=== PATIENT | female | born 1960 | race Caucasian/White ===

== ENCOUNTER 2020-11-03 14:43 | Emergency (ER) | payer MEDICARE, SELFPAY ==
--- NOTE | ~2020-11-03 | XR_ITS ---
EXAMINATION: XR shoulder RT min 2V DATE: 11/03/2020 15:31 INDICATION: Right shoulder pain post fall 1-2 months prior TECHNIQUE: AP internally and externally rotated, AP oblique externally rotated and transscapular Y vi ews of the right shoulder were obtained. COMPARISON: None FINDINGS: Old healed fracture of the right clavicle occurring lateral to the coracoclavicular ligament. Nonunio n with the fracture being healed with cephalad displacement of the lateral fragment. Alignment is oth erwise normal. Glenohumeral joint space appears relatively preserved. Mild acromioclavicular osteoart hritis. Soft tissues are unremarkable. Visualized portions of the lungs are clear. IMPRESSION: Old malunited fracture of the lateral right clavicle. No acute osseous abnormality. Reviewed, dictated and finalized at location A. IMPRESSION: Old malunited fracture of the lateral right clavicle. No acute osseous abnormal ity.
[2020-11-03 14:52] VITALS: BP 156/90; PULSE 64; RESP 20; TEMP 36.8; O2SAT 99
--- NOTE | 2020-11-03 15:39 | ED.UPPEXIN ---
HPI - Extremity Injury (Upper) General Chief Complaint: Extremity Injury, Upper Stated Complaint: Fell in the month of August right Shoulder in pain Source: patient and RN notes reviewed Mode of arrival: ambulatory Limitations: no limitations History of Present Illness HPI narrative: 60 year old female who presents to express care with complaints of right shoulder pain with radiation of pain to her neck and down her right arm. Patient states that she fell directly onto her right shoulder in August at the [facility] [place] and has pain to shoulder since but 2 weeks ago she noticed pain going to her neck and down her right arm. She stats for the past 2 days she has experienced some tingling and numbness to her right hand. She states that pain to her neck seems to be worse when she turns to the right. MD complaint: injury to: right Onset (ago): month(s) (2) Other injuries: none Handedness: right Context: fall Treatments prior to arrival: other (tylenol) Related Data Home Medications Medication Instructions Recorded Confirmed atorvastatin 20 mg PO DAILY 05/10/19 11/03/20 duloxetine 60 mg PO DAILY 05/10/19 11/03/20 furosemide 20 mg PO DAILY 05/10/19 11/03/20 gabapentin 300 mg PO DAILY 05/10/19 11/03/20 meloxicam 15 mg PO DAILY 05/10/19 11/03/20 metformin 500 mg PO DAILY 05/10/19 11/03/20 omeprazole 20 mg PO DAILY 05/10/19 11/03/20 diclofenac sodium 50 mg PO BID 11/03/20 11/03/20 Allergies Allergy/AdvReac Type Severity Reaction Status Date / Time No Known Allergies Allergy Verified 11/03/20 15:01 Review of Systems Review of Systems: Narrative: CONSTITUTIONAL: Denies fever, chills, or sweats. EYES: Denies visual changes, redness, or discharge. ENT: Denies rhinorrhea, congestion, sore throat, or otalgia. CARDIOVASCULAR: Denies chest pain, palpitations, or edema. RESPIRATORY: Denies cough or dyspnea. GASTROINTESTINAL: Denies abdominal pain, nausea, vomiting, or diarrhea. GENITOURINARY: Denies dysuria or hematuria. SKIN: Denies rash or itching. MUSCULOSKELETAL: Denies back pain,positive for right shoulder joint pain radiating to right neck and down right arm or myalgia. NEUROLOGIC: Denies headache, numbness, or weakness. PSYCHIATRIC:Positive history of anxiety or depression. All systems reviewed & are unremarkable except as noted in HPI and below PMFSH Past Medical History Medical History (Updated 11/07/20 @ 14:04 by Vivian Sanchez NP) Anxiety and depression Arthritis Diabetes Hyperlipidemia Hypertension Neuropathy Otitis media Surgical History Surgical History (Updated 11/07/20 @ 14:08 by Vivian Sanchez NP) H/O elbow surgery bilateral ulnar nerve release History of carpal tunnel release bilateral History of placement of ear tubes History of shoulder surgery Bilateral History of total left knee replacement (TKR) History of total right knee replacement (TKR) Hx of LASIK Social History Social History (Updated 11/07/20 @ 14:08 by Vivian Sanchez NP) Smoking status: Never smoker Alcohol intake: unknown Substance use: never Living arrangements: with family Gender identity (if verbalized by the patient): Female Comments At time of signature, agree with nursing past medical, surgical, social and family history. There is no relevant family history pertinent to the presenting complaint Exam Narrative: Exam Narrative: GENERAL: Well-appearing, well-nourished, and in no acute distress. HEAD: Normocephalic, atraumatic. EYES: PERRLA and EOMI. ENT: Nares clear, no rhinorrhea or epistaxis. Mucous membranes moist. NECK: Supple.no lymphadenopathy full ROM of neck CHEST: Clear to auscultation. No respiratory distress.SAO2 99% on room air HEART: Regular rate and rhythm. No murmur heard. Normal peripheral pulses. ABDOMEN: Soft, nontender, nondistended, normal active bowel sounds. EXTREMITIES: Normal range of motion. No edema.Patient with reported pain to right shoulder with radiation to right side
== END 2020-11-03 15:50 | disposition home or self-care (01) ==
PROVIDERS: Emergency Provider Registered Nurse; PCP Nurse Practitioner Family
DX: M25.511 Pain in right shoulder (principal); M19.90 Unspecified osteoarthritis, unspecified site; E78.5 Hyperlipidemia, unspecified; I10 Essential (primary) hypertension; E11.40 Type 2 diabetes mellitus with diabetic neuropathy, unspecified; Z96.653 Presence of artificial knee joint, bilateral
CPT/HCPCS: 73030; 99213; G0463

== ENCOUNTER 2020-12-10 15:40 | Emergency (ER) | payer MEDICARE, SELFPAY ==
--- NOTE | ~2020-12-10 | XR_ITS ---
EXAMINATION:XR cervical spine 4-5V DATE: 12/10/2020 16:12 INDICATION: Neck pain post fall. TECHNIQUE: AP, lateral, lateral swimmers and open-mouth and submental odontoid views of the cervical spine are provided. COMPARISON: None FINDINGS: Alignment is normal. Odontoid is intact. Atlantoaxial osteoarthritis.. Vertebral body heights are nor mal. Minimal to mild disc height loss with mild degenerative endplate changes at C2-C3 through C5-C6. Multilevel mild bilateral cervical uncovertebral osteoarthritis. There is also bilateral, right side predominant multilevel moderate to severe cervical facet osteoarthritis. Prevertebral soft tissues a re normal. Visualized portions of the upper lung zones are clear. IMPRESSION: 1. Cervical spondylosis with mild degenerative disc disease and probable bilateral moderate to severe facet osteoarthritis. Reviewed, dictated and finalized at location A. IMPRESSION: 1. Cervical spondylosis with mild degenerative disc disease and probable bilate ral moderate to severe facet osteoarthritis.
--- NOTE | ~2020-12-10 | XR_ITS ---
EXAMINATION: XR clavicle RT DATE: 12/10/2020 16:12 INDICATION: Right shoulder pain post fall TECHNIQUE: AP and angled AP views of the right clavicle were obtained. COMPARISON: 11/03/2020 FINDINGS: Old healed fracture deformity at the lateral right clavicle occurring lateral to the coracoclavicular ligament. The fracture is healed with some cephalad displacement of the lateral fragment. Alignment is otherwise normal. No acute fracture. And humeral joint space appears normal.. Mild acromioclavicul ar osteoarthritis. Soft tissues and visualized portions of the upper lungs are unremarkable. IMPRESSION: 1. Old malunited fracture lateral right clavicle. No acute osseous abnormality. Reviewed, dictated and finalized at location A.
[2020-12-10 15:45] VITALS: BP 157/72; PULSE 65; RESP 16; TEMP 36.9; O2SAT 97
--- NOTE | 2020-12-10 15:47 | ED.FALL ---
HPI - Fall General Chief Complaint: Neck Pain/Injury Stated Complaint: fall neck and shoulder pain Time Seen by Provider: 12/10/20 15:47 Source: patient and RN notes reviewed History of Present Illness HPI Narrative: Patient is a 60-year-old female who presents the urgent care with complaints as tripping and a hole in her neighbor's yard approximately 1 week ago falling to her right side. Patient states that approximately 5 weeks ago she fractured her right clavicle and she believes she may have reinjured it. Patient is complaining of pain to the right clavicle and right neck. Patient has been taking Tylenol for the pain and resting. States that her pain exacerbates with certain neck movements and certain movements of the right shoulder. No other acute complaints. No acute distress noted. Patient aware of the plan of care. Some parts of this dictation were generated by voice recognition software and may contain typographical and/or grammatical inaccuracies. Related Data Home Medications Medication Instructions Recorded Confirmed atorvastatin 20 mg PO DAILY 05/10/19 12/10/20 duloxetine 60 mg PO DAILY 05/10/19 12/10/20 furosemide 20 mg PO DAILY 05/10/19 12/10/20 gabapentin 300 mg PO TID 05/10/19 12/10/20 meloxicam 15 mg PO DAILY 05/10/19 12/10/20 metformin 500 mg PO BID 05/10/19 12/10/20 omeprazole 20 mg PO BID 05/10/19 12/10/20 diclofenac sodium 50 mg PO BID 11/03/20 12/10/20 Allergies Allergy/AdvReac Type Severity Reaction Status Date / Time No Known Allergies Allergy Verified 11/03/20 15:01 Review of Systems Review of Systems: Narrative: CONSTITUTIONAL: Denies fever, chills, or sweats. EYES: Denies visual changes, redness, or discharge. ENT: Denies rhinorrhea, congestion, sore throat, or otalgia. CARDIOVASCULAR: Denies chest pain, palpitations, or edema. RESPIRATORY: Denies cough or dyspnea. GASTROINTESTINAL: Denies abdominal pain, nausea, vomiting, or diarrhea. GENITOURINARY: Denies dysuria or hematuria. SKIN: Denies rash or itching. MUSCULOSKELETAL: Reports of right clavicle and right neck pain NEUROLOGIC: Denies headache, numbness, or weakness. All other systems reviewed are negative, except as documented in HPI. [facility], [facility] Past Medical History Medical History (Updated 12/10/20 @ 16:32 by CARLINE Dill) Anxiety and depression Arthritis Diabetes Hyperlipidemia Hypertension Neuropathy Otitis media Surgical History Surgical History (Updated 11/07/20 @ 14:08 by Vivian Sanchez NP) H/O elbow surgery bilateral ulnar nerve release History of carpal tunnel release bilateral History of placement of ear tubes History of shoulder surgery Bilateral History of total left knee replacement (TKR) History of total right knee replacement (TKR) Hx of LASIK Social History Social History (Updated 11/07/20 @ 14:08 by Vivian Sanchez NP) Smoking status: Never smoker Alcohol intake: unknown Substance use: never Gender identity (if verbalized by the patient): Female Comments At the time of my signature, I reviewed and agree with the nursing past medical, surgical, social, and family history. There is no relevant family history pertinent to the patient complaint. Exam Narrative: Exam Narrative: GENERAL: This is a well-nourished, well-developed patient, in no apparent distress. HEAD: normocephalic, atraumatic. EYES: PERRL. Sclera clear/white. Vision is grossly intact. EARS: External ears normal NOSE: External nose normal with no obvious nasal discharge, nares without redness, no rhinorrhea. THROAT: Mucous membranes moist, posterior pharynx clear. NECK: Pain with right flexion and head left. Range of motion limited due to pain. No cervical tenderness CARDIOVASCULAR: Regular rate and rhythm without murmurs, gallops, or rubs. RESPIRATORY: Clear to auscultation. Breath sounds equal bilaterally. No wheezes, rales, or rhonchi. SKIN: warm, intact with no suspicious lesions or rash, good textur
== END 2020-12-10 16:40 | disposition home or self-care (01) ==
PROVIDERS: Emergency Provider Nurse Practitioner Family; PCP Nurse Practitioner Family
DX: S16.1XXA Strain of muscle, fascia and tendon at neck level, initial encounter (principal); S40.011A Contusion of right shoulder, initial encounter; W17.2XXA Fall into hole, initial encounter; M47.812 Spondylosis without myelopathy or radiculopathy, cervical region; M50.31 Other cervical disc degeneration, high cervical region; F41.9 Anxiety disorder, unspecified; F32.9 Major depressive disorder, single episode, unspecified; E11.9 Type 2 diabetes mellitus without complications; E78.5 Hyperlipidemia, unspecified; I10 Essential (primary) hypertension; E11.40 Type 2 diabetes mellitus with diabetic neuropathy, unspecified; Z96.653 Presence of artificial knee joint, bilateral
CPT/HCPCS: 72050; 73000; 99213; G0463

== ENCOUNTER 2021-08-03 16:14 | Emergency (ER) | payer MEDICARE, SELFPAY ==
--- NOTE | 2021-08-03 16:19 | ED.URI ---
HPI - URI/Sore Throat General Stated Complaint: Cough/Eye Problem Time Seen by Provider: 08/03/21 16:25 Source: patient Mode of arrival: ambulatory Limitations: no limitations History of Present Illness HPI Narrative: Ms. Malin is a 60-year-old female patient presenting to the clinic today with complaints of runny nose, cough, eye pressure x3 days. States she has been feeling like her eyes have been itchy prior to this. Denies any fever chills. Does report drainage going in the back of her throat. MD elicited complaint: cough and other (eye problem) Related Data Home Medications Medication Instructions Recorded Confirmed atorvastatin 20 mg PO DAILY 05/10/19 12/10/20 duloxetine 60 mg PO DAILY 05/10/19 12/10/20 furosemide 20 mg PO DAILY 05/10/19 12/10/20 gabapentin 300 mg PO TID 05/10/19 12/10/20 meloxicam 15 mg PO DAILY 05/10/19 12/10/20 metformin 500 mg PO BID 05/10/19 12/10/20 omeprazole 20 mg PO BID 05/10/19 12/10/20 diclofenac sodium 50 mg PO BID 11/03/20 12/10/20 Allergies Allergy/AdvReac Type Severity Reaction Status Date / Time No Known Allergies Allergy Verified 08/03/21 16:39 Review of Systems Review of Systems: Pertinent positives per HPI. Patient denies any fever, chills, rash, visual changes, dizziness, shortness of breath, chest pain, palpitations, nausea, vomiting, diarrhea, constipation, abdominal pain, or any urinary issues. [facility] Past Medical History Medical History Anxiety and depression Arthritis Diabetes Hyperlipidemia Hypertension Neuropathy Otitis media Surgical History Surgical History H/O elbow surgery bilateral ulnar nerve release History of carpal tunnel release bilateral History of placement of ear tubes History of shoulder surgery Bilateral History of total left knee replacement (TKR) History of total right knee replacement (TKR) Hx of LASIK Social History Social History Smoking status: Never smoker Alcohol intake: unknown Substance use: never Gender identity (if verbalized by the patient): Female Comments At the time of my signature, I reviewed and agree with the nursing past medical, surgical, social, and family history. There is no relevant family history pertinent to the patient complaint. Exam Narrative: General: Well-developed, obese, in no apparent distress Head: Normocephalic, atraumatic Eyes: Pupils equally round and reactive to light bilaterally, EOM intact, sclera and conjunctive clear, no discharge, lids normal Ears: TMs intact and clear, ear canals clear, no drainage, grossly hearing normal. Nose: Nares patent, clear nasal discharge, mild inflammation, no sinus tenderness. Mouth: Oral pharynx without lesions or masses, good dentition, MMM. Postnasal drip Neck: Supple, trachea midline, no enlargement of anterior or posterior cervical nodes, no thyroid masses or goiter palpable. Cardio: Regular rate and rhythm, s1 and s2 normal, no murmur appreciated. Resp: Clear to auscultation bilaterally, no rhonchi, rales, wheezing or rubs Course Course Emergency Course: Portions of this record may have been created with voice recognition software. Level of Care: Express Care Visit Vital Signs Vital signs: Vital signs reviewed MDM - URI/Sore Throat Differential Diagnosis Differential diagnosis: Likely sinusitis, viral infection, influenza and pharyngitis Discharge Plan Discharge Clinical Impression: Acute upper respiratory infection Patient Disposition: Home, Self-Care Condition: Stable Instructions: Cold Symptoms (ED) Additional Instructions: Take prescription medications only as prescribed. Prednisone as directed Increase fluids and stay well hydrated Tylenol/motrin for pain/fever Flonase and OTC antihistamines as directed Vicks vapor
[2021-08-03 16:26] VITALS: BP 134/92; PULSE 71; RESP 20; TEMP 36.7; O2SAT 98
== END 2021-08-03 16:30 | disposition home or self-care (01) ==
PROVIDERS: Emergency Provider Nurse Practitioner Family; PCP Nurse Practitioner Family
DX: J06.9 Acute upper respiratory infection, unspecified (principal); M19.90 Unspecified osteoarthritis, unspecified site; E78.5 Hyperlipidemia, unspecified; I10 Essential (primary) hypertension; E11.40 Type 2 diabetes mellitus with diabetic neuropathy, unspecified; Z96.653 Presence of artificial knee joint, bilateral
CPT/HCPCS: 99213; G0463

== ENCOUNTER 2022-05-02 16:01 | Emergency (ER) | payer MEDICARE, SELFPAY ==
[2022-05-02 16:06] VITALS: BP 156/93; PULSE 89; RESP 20; TEMP 36.7; O2SAT 98
--- NOTE | 2022-05-02 16:06 | ED.FEMALEGU ---
HPI - Female Genitourinary General Chief complaint: Back Pain/Injury Stated complaint: poss bladder infection Time Seen by Provider: 05/02/22 16:06 Source: patient and RN notes reviewed History of Present Illness HPI Narrative: patient is a 7-year-old female who presents to urgent care with complaints of possible UTI. Patient states that she has had low back pain for approximately 2 weeks which has not developed and diarrhea for the last 3 days. Patient states that she has not had a UTI in some time but believes that is what is the issue. Patient denies any urinary symptoms such as frequency, urgency, hematuria. States that she did go to her doctor and obtained a UA however they never called her back regarding the results. Patient denies any vomiting. No other acute complaints. No acute distress noted. Patient aware of the plan of care. Some parts of this dictation were generated by voice recognition software and may contain typographical and/or grammatical inaccuracies. Related Data Home Medications Medication Instructions Recorded Confirmed atorvastatin 20 mg tablet 20 mg PO DAILY 05/10/19 08/03/21 duloxetine 60 mg capsule,delayed 60 mg PO DAILY 05/10/19 08/03/21 release omeprazole 20 mg tablet,delayed 20 mg PO BID 05/10/19 08/03/21 release gabapentin 600 mg tablet 600 mg PO BID 08/03/21 08/03/21 sitagliptin phos 100 mg-metformin 1 tablet PO DAILY 08/03/21 08/03/21 ER 1,000 mg tablet,extend rel 24h mp (Janumet XR) Allergies Allergy/AdvReac Type Severity Reaction Status Date / Time No Known Allergies Allergy Verified 08/03/21 16:39 Review of Systems Review of Systems: CONSTITUTIONAL: Denies fever, chills, or sweats. EYES: Denies visual changes, redness, or discharge. ENT: Denies rhinorrhea, congestion, sore throat, or otalgia. CARDIOVASCULAR: Denies chest pain, palpitations, or edema. RESPIRATORY: Denies cough or dyspnea. GASTROINTESTINAL: reports of nausea without vomiting. Reports of diarrhea GENITOURINARY: Denies dysuria or hematuria. Reports of right-sided flank pain SKIN: Denies rash or itching. MUSCULOSKELETAL: Denies back pain, joint pain, or myalgia. NEUROLOGIC: Denies headache, numbness, or weakness. All other systems reviewed are negative, except as documented in HPI. [facility] Past Medical History Medical History Anxiety and depression Arthritis Diabetes Hyperlipidemia Hypertension Neuropathy Otitis media Surgical History Surgical History H/O elbow surgery bilateral ulnar nerve release History of carpal tunnel release bilateral History of placement of ear tubes History of shoulder surgery Bilateral History of total left knee replacement (TKR) History of total right knee replacement (TKR) Hx of LASIK Social History Social History Smoking status: Never smoker Alcohol intake: unknown Substance use: never Gender identity (if verbalized by the patient): Female Comments At the time of my signature, I reviewed and agree with the nursing past medical, surgical, social, and family history. There is no relevant family history pertinent to the patient complaint. Exam Narrative: GENERAL: This is a well-nourished, well-developed patient, in no apparent distress. HEAD: normocephalic, atraumatic. EYES: PERRL. Sclera clear/white. Vision is grossly intact. EARS: External ears normal NOSE: External nose normal with no obvious nasal discharge, nares without redness, no rhinorrhea. THROAT: Mucous membranes moist NECK: Neck supple RESPIRATORY: Clear to auscultation. Breath sounds equal bilaterally. No wheezes, rales, or rhonchi. GASTROINTESTINAL: Abdomen soft, mild right lower quadrant tenderness, nondistended. Bowel sounds are hypoactive. SKIN: warm, intact with no suspicious lesions or
== END 2022-05-02 16:33 | disposition home or self-care (01) ==
PROVIDERS: Emergency Provider Nurse Practitioner Family; PCP Nurse Practitioner Family
DX: N39.0 Urinary tract infection, site not specified (principal); M19.90 Unspecified osteoarthritis, unspecified site; E11.9 Type 2 diabetes mellitus without complications; E78.5 Hyperlipidemia, unspecified; I10 Essential (primary) hypertension; E11.40 Type 2 diabetes mellitus with diabetic neuropathy, unspecified; Z96.653 Presence of artificial knee joint, bilateral
CPT/HCPCS: 81003; 87086; 99213; G0463

== ENCOUNTER 2022-12-14 14:09 | Emergency (ER) | payer MEDICARE, SELFPAY ==
[2022-12-14 14:16] VITALS: BP 134/79; PULSE 63; RESP 20; TEMP 36.3; O2SAT 99
[2022-12-14 14:20] VITALS: BP 134/79; PULSE 63; RESP 20; TEMP 36.3; O2SAT 99
--- NOTE | 2022-12-14 14:51 | ED.URI ---
HPI - URI/Sore Throat General Chief Complaint: Upper Respiratory Infection Stated Complaint: Sore Throat/Ear Pain Time Seen by Provider: 12/14/22 14:53 Source: patient and RN notes reviewed Mode of arrival: ambulatory Limitations: no limitations History of Present Illness HPI Narrative: 62-year-old female presents with concern for right ear pain and sore throat for about 2 weeks. She denies nasal congestion, rhinorrhea, body aches, chills, sweats. She denies any drainage from the ear. She denies any intervention MD elicited complaint: sore throat Related Data Home Medications Medication Instructions Recorded Confirmed atorvastatin 20 mg tablet 20 mg PO DAILY 05/10/19 08/03/21 duloxetine 60 mg capsule,delayed 60 mg PO DAILY 05/10/19 08/03/21 release omeprazole 20 mg tablet,delayed 20 mg PO BID 05/10/19 08/03/21 release gabapentin 600 mg tablet 600 mg PO BID 08/03/21 08/03/21 diclofenac sodium 50 mg mg PO 12/14/22 tablet,delayed release empagliflozin 10 mg tablet mg 12/14/22 (Jardiance) glipizide 10 mg tablet mg 12/14/22 hydrochlorothiazide 25 mg tablet mg 12/14/22 losartan 25 mg tablet mg 12/14/22 oxybutynin chloride 5 mg tablet mg 12/14/22 Allergies Allergy/AdvReac Type Severity Reaction Status Date / Time No Known Allergies Allergy Verified 08/03/21 16:39 Review of Systems Review of Systems: CONSTITUTIONAL: Denies malaise, chills, sweats, or fever. EYES: Denies visual changes, redness, or discharge. ENT: Denies rhinorrhea, congestion, sinus pain. Reports right otalgia and right-sided sore throat. CARDIOVASCULAR: Denies chest pain, palpitations, or edema. RESPIRATORY: Denies cough. Denies dyspnea. GASTROINTESTINAL: Denies abdominal pain, nausea, vomiting, diarrhea SKIN: Denies rash or itching. MUSCULOSKELETAL: Denies myalgia. NEUROLOGIC: Denies headache. All systems reviewed & are unremarkable except as noted in HPI and below PMFSH Past Medical History Medical History Anxiety and depression Arthritis Diabetes Hyperlipidemia Hypertension Neuropathy Otitis media Surgical History Surgical History H/O elbow surgery bilateral ulnar nerve release History of carpal tunnel release bilateral History of placement of ear tubes History of shoulder surgery Bilateral History of total left knee replacement (TKR) History of total right knee replacement (TKR) Hx of LASIK Social History Social History Smoking status: Never smoker Alcohol intake: unknown Substance use: never Living arrangements: with family Gender identity (if verbalized by the patient): Female Comments At time of signature, agree with nursing past medical, surgical, social and family history. There is no relevant family history pertinent to the presenting complaint Exam Narrative: GENERAL: Well-appearing, well-nourished, and in no acute distress. HEAD: Normocephalic EYES: PERRLA, conjunctivae clear ENT: Nares clear, no discharge. Mucous membranes moist. TM pearly prieto with sharp light reflex bilaterally; no tragal tenderness. Oropharynx mildly erythematous on the right without lesions. Tonsils not enlarged and without exudate, no drooling, no hoarseness, no trismus, uvula midline. NECK: Supple. No lymphadenopathy CHEST: Clear to auscultation, breath sounds equal. No wheezing, rhonchi, rales, or stridor. No respiratory distress, speaks in full sentences. HEART: Regular rate and rhythm. No murmur heard. SKIN: Warm, dry, no rash. NEURO: Alert and oriented x3. PSYCH: Normal mood and affect Course Course Emergency Course: Patient is aware of diagnosis, understands and agrees to treatment plan. Anticipatory guidance given. Patient agrees to follow-up as directed and is aware of reasons to seek care at the emergency depar
== END 2022-12-14 15:29 | disposition home or self-care (01) ==
PROVIDERS: Emergency Provider Nurse Practitioner; PCP Internal Medicine
DX: J02.9 Acute pharyngitis, unspecified (principal); H92.01 Otalgia, right ear; M19.90 Unspecified osteoarthritis, unspecified site; E78.5 Hyperlipidemia, unspecified; I10 Essential (primary) hypertension; E11.40 Type 2 diabetes mellitus with diabetic neuropathy, unspecified; Z96.653 Presence of artificial knee joint, bilateral
CPT/HCPCS: 87081; 87880; 99213; G0463

== ENCOUNTER 2022-12-19 17:12 | Emergency (ER) | payer MEDICARE, SELFPAY ==
--- NOTE | ~2022-12-19 | XR_ITS ---
XR foot LT min 3V DATE: 12/19/2022 17:45 INDICATION: Lateral foot pain and swelling following fall TECHNIQUE: 4 views COMPARISON: None FINDINGS: There is a linear oblique fracture of the proximal to mid shaft of fifth metatarsal bone wi thout significant displacement or any angulation. No other recent fracture or dislocation. No periosteal reaction or bone destruction. Posterior calcaneal enthesopathy. IMPRESSION: Virtually nondisplaced linear oblique fracture of the proximal to mid shaft of the fifth metatarsal bone Reviewed, dictated and finalized at location A. IMPRESSION: Virtually nondisplaced linear oblique fracture of the proximal to m id shaft of the fifth metatarsal bone
[2022-12-19 17:22] VITALS: BP 138/74; PULSE 71; RESP 18; TEMP 36.2; O2SAT 99
--- NOTE | 2022-12-19 17:47 | PC.NURSE ---
PT DECLINED WHEELCHAIR TO RADIOLOGY
--- NOTE | 2022-12-19 17:56 | ED.LOWEXIN ---
HPI - Extremity Injury (Lower) General Chief Complaint: Extremity Injury, Lower Stated Complaint: Fall Injury/Left Foot Time Seen by Provider: 12/19/22 17:44 Source: patient, RN notes reviewed and old records reviewed Mode of arrival: ambulatory Limitations: no limitations History of Present Illness HPI Narrative: 62 year old female who presents to express care with complaints of injury to her left foot last night at the [facility] when she stepped on uneven wood floor and her foot rolled causing injury to her right foot. Patient has point tenderness of left foot along 5th metatarsal region. Patient denies any tingling or numbness to her right foot, pedal pulse is palpable, reports throbbing pain to footalong the 5th metatarsal with limping gait noted on arrival, has been using ice to her foot and elevation. MD complaint: foot injury Onset (ago): day(s) (last evening) Type of Injury: inversion Severity scale (1-10): 4 Treatments prior to arrival: cold therapy and other (elevation) Related Data Home Medications Medication Instructions Recorded Confirmed atorvastatin 20 mg tablet 20 mg PO DAILY 05/10/19 12/19/22 duloxetine 60 mg capsule,delayed 60 mg PO DAILY 05/10/19 12/19/22 release omeprazole 20 mg tablet,delayed 20 mg PO BID 05/10/19 12/19/22 release gabapentin 600 mg tablet 600 mg PO BID 08/03/21 12/19/22 diclofenac sodium 50 mg 50 mg PO BID 12/14/22 12/19/22 tablet,delayed release empagliflozin 10 mg tablet 10 mg PO DAILY 12/14/22 12/19/22 (Jardiance) glipizide 10 mg tablet 10 mg PO DAILY 12/14/22 12/19/22 hydrochlorothiazide 25 mg tablet 25 mg PO DAILY 12/14/22 12/19/22 losartan 25 mg tablet 25 mg PO DAILY 12/14/22 12/19/22 oxybutynin chloride 5 mg tablet mg 12/14/22 Allergies Allergy/AdvReac Type Severity Reaction Status Date / Time No Known Allergies Allergy Verified 08/03/21 16:39 Review of Systems Review of Systems: CONSTITUTIONAL: Denies fever, chills, or sweats. EYES: Denies visual changes, redness, or discharge. ENT: Denies rhinorrhea, congestion, sore throat, or otalgia. CARDIOVASCULAR: Denies chest pain, palpitations, or edema. RESPIRATORY: Denies cough or dyspnea. GASTROINTESTINAL: Denies abdominal pain, nausea, vomiting, or diarrhea. GENITOURINARY: Denies dysuria or hematuria. SKIN: Denies rash or itching. MUSCULOSKELETAL: Denies back pain,positive for pain to her left 5th metatarsal region, or myalgia. NEUROLOGIC: Denies headache, numbness, or weakness. PSYCHIATRIC: History of anxiety or depression. All systems reviewed & are unremarkable except as noted in HPI and below PMFSH Past Medical History Medical History Anxiety and depression Arthritis Diabetes Hyperlipidemia Hypertension Neuropathy Otitis media Surgical History Surgical History H/O elbow surgery bilateral ulnar nerve release History of carpal tunnel release bilateral History of placement of ear tubes History of shoulder surgery Bilateral History of total left knee replacement (TKR) History of total right knee replacement (TKR) Hx of [facility] Social History Social History Smoking status: Never smoker Alcohol intake: unknown Substance use: never Living arrangements: with family Gender identity (if verbalized by the patient): Female Comments At time of signature, agree with nursing past medical, surgical, social and family history. There is no relevant family history pertinent to the presenting complaint Exam Narrative: GENERAL: Well-appearing, well-nourished, and in no acute distress. HEAD: Normocephalic, atraumatic. EYES: PERRLA and EOMI. ENT: Nares clear, no rhinorrhea or epistaxis. Mucous membranes moist. NECK: Supple. no lymphadenopathy CHEST: Clear to auscultation. No respiratory distress.SAO2 99% on room
== END 2022-12-19 18:20 | disposition home or self-care (01) ==
PROVIDERS: Emergency Provider Registered Nurse
DX: S92.355A Nondisplaced fracture of fifth metatarsal bone, left foot, initial encounter for closed fracture (principal); X50.9XXA Other and unspecified overexertion or strenuous movements or postures, initial encounter; M19.90 Unspecified osteoarthritis, unspecified site; E78.5 Hyperlipidemia, unspecified; I10 Essential (primary) hypertension; E11.40 Type 2 diabetes mellitus with diabetic neuropathy, unspecified
CPT/HCPCS: 73630; 99214; G0463

== ENCOUNTER 2024-07-12 16:21 | Emergency (ER) | payer MEDICARE, SELFPAY ==
--- OUTSIDE RECORDS SUMMARY | 2024-07-12 16:23 | XMS_ITS | Encounter Summary ---
Author Organization [facility] Address [address] [place] [address] Phone Care Team Providers Care Mitten Sewer Name Role Phone Remberto Pandey MD Primary Care Provider John Aquino MD Unavailable Reason for Visit * Reason Onset Date Comments Medication Management 06/06/2023 Encounter Details Date Type Department Care Team (Late st Contact Info) Description 06/06/2023 Telephone [facility] - Family [facility] [address] [place] [address] Remberto Pandey MD [address] [address] Medication Management Social History Tobacco Use Types Packs/Day Years Used Date Smoking Tobacco: Never Smokeless Tobacco: Never Alcohol Use Standard Drinks/Week Comments Yes 1 (1 standard drink = 0.6 oz pure alcohol) ocassionally mixed drinks ONCE OR TWICE A MONTH PHQ-2 Answer Date Recorded Total Score - Questions 1-9 0 02/27 Education Answer Date Recorded What is the highest level of school you have completed or the highest degree you have received? 10th grade 07/12/2022 Sexually Active Control Partners Comments Yes Male Comments No Sex and Gender Information Value Date Recorded Sex Assigned at Not on file Legal Sex Female 7:23 PM CDT Gender Identity Not on file Sexual Orientation Not on file documented as of this encounter Miscellaneous Notes * Telephone Encounter - Bell Stone RMA - 06/07/2023 9:05 AM COMMERCIAL TELLER Pt notified ERCIAL TELLER * Telephone Encounter - Remberto Pandey MD - 06/06/2023 4:11 PM CST Please call. Will call in. No changes with other dm meds right now ERCIAL TELLER * Telephone Encounter - Yari Spears - 06/06/2023 3:01 PM CST Ozempic was called in several months ago, but patient's copay was $300.00 so she did not pickle maker. She just got brand new insurance and would like it called in again hoping it will be cheaper this time. Also, if she gets Ozempic will she need to adjust any of her other diabetic medications. ERCIAL TELLER documented in this encounter Plan of Treatment Upcoming Encounters Date Type Department Care Team (Late st Contact Info) Description 07/31/2024 2:00 PM COMMERCIAL TELLER Lab [facility] [address] [place] [address] [address] [place] Rm Lab/Ancillary 08/07/2024 1:30 PM CDT Office Visit [facility] - Family Medicine - [place] [address] [place] [address] Remberto Pandey MD [address] [facility] [address] [place] [address] documented as of this encounter Visit Diagnoses Not on filedocumented in this encounter Additional Health Concerns Assessment Noted Time PHQ-9 Depression Total Score: 0 10/10/20 23 2:31 PM CDT documented as of this encounter Care Teams Mitten Sewer Relationship Specialty Start Date End Date Remberto Pandey MD [address] [facility] [address] [place] [address] PCP - General Family Medicine 07/13/22 John Aquino MD [address] [facility] [address] [place] [address] Consulting Physician Colon and Rectal Surgery 05/06/23 documented as of this encounter
--- OUTSIDE RECORDS SUMMARY | 2024-07-12 16:23 | XMS_ITS | Encounter Summary ---
Author Organization [facility] Address [address] [place] [address] Phone Care Team Providers Care Trimming Cutter Machine Name Role Phone Remebrto Pandey MD Primary Care Provider [phone] John Aquino MD Unavailable Reason for Visit * Reason Comments Medication Refill Encounter Details Date Type Department Care Team (Late st Contact Info) Description 10/21/2023 Refill [facility] [address] [place] [address] Remberto Pandey MD [address] [address] Medication Refill Social History Tobacco Use Types Packs/Day Years Used Date Smoking Tobacco: Never Smokeless Tobacco: Never Alcohol Use Standard Drinks/Week Comments Yes 1 (1 standard drink = 0.6 oz pure alcohol) ocassionally mixed drinks ONCE OR TWICE A MONTH [facility] Utilities Answer Date Recorded In the past 12 months has [place], gas, oil, or water [employer] threatened to shut off services in your home? No 07/23/2023 Social Connection and Isolation Panel [NHANES] A nswer Date Recorded In a typical week, how many times do you talk on the phone with family, friends, or neighbors? Patient declined 07/23/2023 How often do you get togethe r with friends or relatives? Patient declined 07/23/2023 How often do you attend islam or restorationist serv ices? Patient declined 07/23/2023 Do you belong to any clubs o r organizations such as islam groups, unions, fraternal or athletic groups, or school groups? Patient declined 07/23/2023 How often do you attend meet ings of the clubs or organizations you belong to? Patient declined 07/23/2023 Are you , , di vorced, , never , or living with a partner? Patient declined 07/23/2023 AUDIT-C Answer Date Recorded Q1: How often do you have a drink containing alc ohol? 2-4 times a month 07/23/2023 Q2: How many drinks containi ng alcohol do you have on a typical day when you are drinking? 1 or 2 07/23/2023 Q3: How often do you have si x or more drinks on one occasion? Less than monthly 07/23/2023 Overall Financial Resource Strain (CARDIA) Answe r Date Recorded How hard is it for you to pa y for the very basics like food, housing, medical care, and heating? Not very hard 07/23/2023 PHQ-2 Answer Date Recorded Total Score - Questions 1-9 0 07/01 [facility] Occupat ional [facility] - Occupational Stress Questionnaire Answer Date Recorded Do you feel stress - tense, restless, nervous, or anxious, or unable to sleep at night because your mind is troubled all the time - these days? Patient declined 07/23/2023 Exercise Vital Sign Answer Date Recorde d On average, how many days pe r week do you engage in moderate to strenuous exercise (like a brisk walk)? 0 days On average, how many minutes do you engage in exercise at this level? Patient declined 07/23/2023 Hunger Vital Sign Answer Date Recorded Within the past 12 months, y ou worried that your food would run out before you got the money to buy more. Patient declined Within the past 12 months, t he food you bought just didn't last and you didn't have money to get more. Patient declined PRAPARE - Transportation Answer Date Re corded In the past 12 months, has l ack of transportation kept you from medical appointments or from getting medications? No 07/01 In the past 12 months, has l ack of transportation kept you from meetings, work, or from getting things needed for daily living? No 07/23/2023 Housing Stability Vital Sign Answer Ab e Recorded In the last 12 months, was t here a time when you were not able to pay the mortgage or rent on time? Yes 07/23/2023 In the last 12 months, how many places have you lived? 1 07/23/2023 In the last 12 months, was t here a time when you did not have a steady place to sleep or slept in a care home (including now)? No 07/23/2023 Education Answer Date Recorded What is the [...] encounter Miscellaneous Notes * Telephone Encounter - Olive Merino RN - 10/21/2023 4:31 PM CDT Medication(s) refilled and signed per [facility] Chronic Medication Refill Standing Order for Pediatricand Adult Patients. Requested Prescriptions Pending Prescriptions Disp Refills Ozempic, 1 MG/DOSE, 4 MG/3ML Solution Pen-injector [Pharmacy Med Name: Ozempic (1 MG/DOSE) 4 MG/3MLSubcutaneous Solution Pen-injector] 3 mL 0 Sig: INJECT 1 MG SUBCUTANEOUSLY ONCE A WEEK GLP-1 Agonists Protocol Passed - 10/21/2023 2:03 PM Passed - Lipid panel result on file in past 12 months LDL Date Value Ref Range Status 07/21/2023 66 <130 mg/dL Final HDL CHOLESTEROL Date Value Ref Range Status 07/21/2023 40 (L) >40 mg/dL Final CHOLESTEROL Date Value Ref Range Status 07/21/2023 146 <200 mg/dL Final TRIGLYCERIDES Date Value Ref Range Status 07/21/2023 200 (H) <150 mg/dL Final VLDL Date Value Ref Range Status 07/21/2023 40 10 - 50 mg/dL Final CHOL/HDL RATIO Date Value Ref Range Status 07/21/2023 3.7 0.0 - 4.4 Final NON-HDL CHOLESTEROL Date Value Ref Range Status 07/21/2023 106 <130 mg/dL Final Passed - Visit with relevant provider in past 6 months or upcoming 90 days Recent Visits Date Type Provider Dept 09/05/23 Office Visit Ida [facility] 08[facility]23 Office Visit Remberto Pandey MD [facility] 07/25/23 Office Visit Remberto Pand[facility] MD [facility] Showing recent visits within past 182 days and meeting all other requirements Future Appointments Date Type Provider Dept 11/21/23 Appointment Remberto Pandey MD [facility] [place] Showing future appointments within next 90 days and meeting all other requirements Passed - HgA1C result on record in past 6 months HGB-A1C Date Value Ref Range Status 07/21/2023 6.0 4.0 - 6.0 % Final Passed - GFR on record in past 6 months GFR, EST. NONAFRICAN Date Value Ref Range Status 07/21/2023 >60 >=60 Final documented in this encounter Plan of Treatment Upcoming Encounters Date Type Department Care Team (Late st Contact Info) Description 07/31/2024 2:00 PM SURFACE LOGGING SYSTEMS LOGGER Lab [facility] #[address] [address] [place] Rm Lab/Ancillary 08/07/2024 1:30 PM CDT Office Visit [facility] - [place] [address] [place] [address] Remberto Pandey MD #[address] [address] documented as of this encounter Visit Diagnoses Not on filedocumented in this encounter Additional Health Concerns Assessment Noted Time PHQ-9 Depression Total Score: 0 07/25/19 2:50 PM SURFACE LOGGING SYSTEMS LOGGER documented as of this encounter Care Teams Trimming Cutter Machine Relationship Specialty Start Date End Date Remberto Pandey MD [address] [facility] [facility] [address] [place] [address] PCP - General Family Medicine 07/13/22 John Aquino MD [address] [facility] [address] [place] [address] Consulting Physician Colon and Rectal Surgery 05/06/23 documented as of this encounter
--- OUTSIDE RECORDS SUMMARY | 2024-07-12 16:23 | XMS_ITS | Referral Summary ---
Author Organization [facility] Address [address] [place] [address] Care Team Providers Care Truck Body Builder Name Role Phone Gilbert Kennedy APRN-JEWELRY BEARING MAKER Primary Care Provider Source Comments [facility],non-owned Affiliates and Associated Physician Practices is amultiple site organization consisting of ambulatory clinics and hospital sitesin [place], [place], [place] and [place]. This disclosure is being madepursuant to the Care Everywhere program and may not contain all information available regarding this patient. Last updated 18.[facility] Social History Tobacco Use Types Packs/Day Years Used Date Smoking Tobacco: Never Assessed Sex and Gender Information Value Date Recorded Sex Assigned at Not on file Gender Identity Not on file Sexual Orientation Not on file Last Filed Vital Signs Vital Sign Reading Time Taken Comments Blood Pressure 144/95 08/30/2018 1:16 PM CDT Pulse 71 08/30/2018 1:16 PM CDT Temperature 37 C (98.6 F) 08/30/2018 1:16 PM CDT Respiratory Rate 18 08/30/2018 1:16 PM CDT Oxygen Saturation 98% 08/30/2018 1:16 PM CDT Inhaled Oxygen Concentration - - Weight 105.6 kg (232 lb 14.4 oz) 08/30/2018 1:16 PM CDT Height 162.6 cm (5' 4 ) 08/30/2018 1:16 PM CDT Body Mass Index 39.98 08/30/2018 1:16 PM CDT Plan of Treatment Not on file Care Teams Truck Body Builder Relationship Specialty Start Date End Date Gilbert Kennedy, [employer] VAN VENDOR-JEWELRY BEARING MAKER [address] [place] [address] PCP - General 08/30/18
--- OUTSIDE RECORDS SUMMARY | 2024-07-12 16:23 | XMS_ITS | Clinical Summary ---
Author Organization [facility] Address [address] [place] [address] Phone Care Team Providers Care Manager Of Hospital Name Role Phone Unavailable Unavailable Unavailable Reason for Visit and Chief Complaint GENERAL OFFICE VISIT Plan of Treatment No Plan of Treatment Recorded Assessments Includes: Assessments from this encounter No Assessments Recorded Medical Equipment - Implanted Devices Includes: Current Devices No Medical Equipment Recorded Medications Administered Includes: Administered Medications from this encounter No Administered Medications Recorded Results Includes: Results discussed during this encounter No Results Recorded For Specified Dates History of Present Illness Includes: History of Present Illness from this encounter No History of Present Illness Recorded Social History No Social History Recorded - Smoking Status Unknown Medical History Includes: Medical History addressed during this encounter No Medical History Recorded Family History Includes: Family History addressed during this encounter No Family History Recorded Review of Systems Includes: Review of Systems from this encounter No Review of Systems Recorded Mental Status Includes: Mental Status from this encounter No Mental Status Recorded Functional Status Includes: Functional Status from this encounter No Functional Status Recorded Physical Exam Includes: Physical Exam from this encounter No Physical Exam Recorded Clinical Notes Includes: Clinical Notes from this encounter No Clinical Notes Recorded
--- OUTSIDE RECORDS SUMMARY | 2024-07-12 16:23 | XMS_ITS | Clinical Summary ---
Author Organization [facility] Address [address] [address] Phone Care Team Providers Care Curing Pickling Packer Name Role Phone Remberto Pandey MD Primary Care Provider [phone] John Aquino MD Unavailable Allergies Active Allergy Reactions Criticality Noted Date Comments Metformin Diarrhea 08/16/2022 Sulfa Antibiotics Other (see Comments) Medium 06/08/19 18 blisters Medications MULTIPLE VITAMIN PO Take 1 Tablet by mouth daily. Active oxybutynin (DITROPAN) 5 MG TabletIndicat ions:OAB (overactive bladder) Take 1 tablet by mouth once daily 90 Tablet 1 024 Active glipiZIDE (GLUCOTROL) 10 MG Tablet Take 1 tablet by mouth once daily 90 Tablet 1 024 Active hydroCHLOROth iazide 25 MG Tablet Take 1 Tablet by mouth every morning. 90 Tablet 3 024 Active methylPREDNIS olone (MEDROL DOSPACK) 4 MG Tablet Therapy PackIndicatio ns:Neck pain Take as directed on package 21 Tablet 024 Active naproxen (NAPROSYN) 500 MG Tablet Take 1 Tablet by mouth 2 times daily (with meals). 60 Tablet 024 Active losartan (COZAAR) 25 MG Tablet TAKE 1 TABLET BY MOUTH ONCE DAILY IN THE MORNING 90 Tablet 1 024 Active pioglitazone (ACTOS) 30 MG Tablet Take 1 tablet by mouth once daily 90 Tablet 1 024 Active atorvastatin (LIPITOR) 20 MG Tablet Take 1 Tablet by mouth every morning. 90 Tablet 3 024 Active Tirzepatide (Mounjaro) 2.5 MG/0.5ML Solution Auto-injector 2.5 mg by Subcutaneous route every 7 days. 2 mL 025 Active triamcinolone (KENALOG) 0.1 % Cream Application Site: apply daily to left hand (Description and Location) 80 g 1 025 Active omeprazole (PriLOSEC) 20 MG CAPSULE DELAYED RELEASE Take 1 Capsule by mouth 2 times daily. 180 Capsule Active DULoxetine (CYMBALTA) [address] Particles Take 1 Capsule by mouth daily. 90 Capsule 3 025 Active gabapentin (NEURONTIN) 300 MG Capsule Take 1 Capsule by mouth 3 times daily. 270 Capsule 025 Active gabapentin (NEURONTIN) 300 MG Capsule Take 1 Capsule by mouth 3 times daily. 270 Capsule 6 024 2024 Discontinued DULoxetine (CYMBALTA) [address] Particles Take 1 capsule by mouth once daily 90 Capsule 1 024 2024 Discontinued(R eorder) omeprazole (PriLOSEC) 20 MG CAPSULE DELAYED RELEASE Take 1 capsule by mouth twice daily 180 Capsule 024 2024 Discontinued(R eorder) Ozempic, 2 MG/DOSE, 8 MG/3ML Solution Pen-injector INJECT 2MG SUBCUTANEOUSLY ONCE A WEEK 3 mL 025 2024 Discontinued(E rror) Active Problems Problem Noted Date Diagnosed Date Neck pain 02/14/2024 Type 2 diabetes mellitus wit h microalbuminuria, without long-term current use of insulin 07/25/2023 Current mild episode of ralph r depressive disorder without prior episode 07/25/2023 Primary osteoarthritis of left knee 02/21/2019 Ulnar neuropathy at elbow of left upper extremit y 06/08/2017 Encounters Date Type Department Care Team Description 06/21/2024 Refill [facility] [place] [address] [place] [address] Remberto Pandey MD Medication Refill 06/19/2024 Telephone [facility] [address] [place] [address] Remberto Pandey MD Prior Authorization 06/14/2024 1:30 PM [employer]ROL POL[employer] SERGE[employer] Office Visit [facility] [address] [place] [address] Remberto Pandey MD Type 2 diabetes mellitus with microalbuminuria, without long-term current use of insulin (HCC) (Primary Dx); Current mild episode of major depressive disorder without prior episode (HCC); Primary hypertension Discharge Disposition: Discharged to home or Selfcare 06/13/2024 Results Follow-Up [facility] [address] [place] [address] Remberto Pandey MD 06/13/2024 Travel 06/12/2024 2:59 PM [employer]ROL POLICE SERGEANT - 06/12/2024 11:59 PM [employer]ROL POL[employer]GEANT [facility] [address] [place] [address] Remberto Pandey MD Discharge Disposition: Discharged to home or Selfcare 06/12/2024 Telephone [facility] [address] [place] [address] Remebrto Pandey MD Prior Authorization 06/12/2024 Travel 06/09/2024 Refill [facility] [address] [place] [address] Remberto Pandey MD Medication Refill 05/04/2024 Telephone [facility] [address] [place] [phone] Remberto Pandey MD Advice Only 04/12/2024 Transcribe Orders [facility] [address] [place] [address] [place] [address] Remberto Pandey MD Visit for screening mammogram (Primary Dx) from Last 3 Months Immunizations Immunization Administration Dates Next Due Influenza Vaccine 03/06/2015 Influenza Vaccine, Quadrivalent, PF 02/27,04/09/2022,03/25/2021,2018,03/06/2018,02/16/2017 Influenza, Injectable, Quadrivalent 03/13/2018 Influenza,Split Virus,Trivalent,Injectable,PF 02/14/2024 Pneumococcal Vaccine - 13 Valent 03/13/2018 Pneumococcal Vaccine Adult - 23 Valent 11/28/2019,03/06/2018,03/06/2015 TDAP Vaccine 08/29/2023 Zoster Vaccine Recombinant 10/07/2023,06/06/2023 Family History Medical History Relation Name Comments Crohn's Disease Brother No Known Problems Daughter Cancer Father lung Stroke Father Lung Cancer Mother Hypertension Sister 1 Lung Cancer Sister 2 Lung Cancer Sister 3 Diabetes Sister 4 Crohn's Disease Son Relation Name Status Comments Brother Alive Daughter Alive Father Mother Sister 1 Alive Sister 2 Sister 3 Sister 4 Alive Son Alive Social History Tobacco Use Types Packs/Day Years Used Date Smoking Tobacco: Never Smokeless Tobacco: Never Tobacco Cessation:Counseling Given: No Alcohol Use Standard Drinks/Week Comments Yes 1 (1 standard drink = 0.6 oz pure alcohol) ocassionally mixed drinks ONCE OR TWICE A MONTH [facility] Utilities Answer Date Recorded In the past 12 months has [employer], gas, oil, or water [employer] threatened to shut off services in your home? No 11/25/2023 Social Connection and Isolation Panel [NHANES] A nswer Date Recorded In a typical week, how many times do you talk on the phone with family, friends, or neighbors? Three times a week 11/25/2023 How often do you get togethe r with friends or relatives? Patient declined 11/25/2023 How often do you attend chur ch or voodoo services? Patient declined 11/25/2023 Do you belong to any clubs o r organizations such as voodoo groups, unions, fraternal or athletic groups, or school groups? Patient declined 11/25/2023 How often do you attend meet ings of the clubs or organizations you belong to? Patient declined 11/25/2023 Are you , , di vorced, , never , or living with a partner? Patient declined 11/25/2023 AUDIT-C Answer Date Recorded Q1: How often do you have a drink containing alc ohol? Never 11/25/2023 Q2: How many drinks containi ng alcohol do you have on a typical day when you are drinking? 1 or 2 11/25/2023 Q3: How often do you have si x or more drinks on one occasion? Less than monthly 11/25/2023 Overall Financial Resource Strain (CARDIA) Answe r Date Recorded How hard is it for you to pa y for the very basics like food, housing, medical care, and heating? Not hard at all 11/25/2023 PHQ-2 Answer Date Recorded Total Score - Questions 1-9 0 01/28 [facility] - Occupational Stress Questionnaire Answer Date Recorded Do you feel stress - tense, restless, nervous, or anxious, or unable to sleep at night because your mind is troubled all the time - these days? Only a little 11/25/2023 Exercise Vital Sign Answer Date Recorde d On average, how many days pe r week do you engage in moderate to strenuous exercise (like a brisk walk)? 0 days 11/25/2023 On average, how many minutes do you engage in exercise at this level? 30 min 11/25/2023 Hunger Vital Sign Answer Date Recorded Within the past 12 months, y ou worried that your food would run out before you got the money to buy more. Never true Within the past 12 months, t he food you bought just didn't last and you didn't have money to get more. Patient declined PRAPARE - Transportation Answer Date Re corded In the past 12 months, has l ack of transportation kept you from medical appointments or from getting medications? No 10/29 In the past 12 months, has l ack of transportation kept you from meetings, work, or from getting things needed for daily living? No 11/25/2023 Housing Stability Vital Sign Answer Ab e [...] place to sleep or slept in a senior care (including now)? No 07/23/2023 Education Answer Date [...] Sign Reading Time Taken Comments Blood Pressure 110/64 06/14/2024 1:31 PM [employer] Pulse 68 06/14/2024 1:31 PM [employer]GEANT Temperature 36.4 C (97.6 F) 06/14/2024 1:31 PM [employer]OL POL[employer] SERGEANT Respiratory Rate 16 06/14/2024 1:31 PM [employer]OL POLICE SERGEANT Oxygen Saturation 95% 06/14/2024 1:31 PM [employer]OL POLICE SERGEANT Inhaled Oxygen Concentration - - Weight 107 kg (235 lb 12.8 oz) 06/14/2024 1:31 P M [employer] Height 162.6 cm (5' 4 ) 06/14/2024 1:31 PM [employer]OL [employer]GEANT Body Mass Index 40.47 06/14/2024 1:31 PM [employer]OL POL[employer]GEANT Plan of Treatment Upcoming Encounters Date Type Department Care Team (Late st Contact Info) Description 07/31/2024 2:00 PM [employer]OL POL[employer] SERGEANT Lab [facility] #[address] [address] [place] [facility]/Ancillary 08/07/2024 1:30 PM CDT Office Visit [facility] [place] [address] [place] [address] Remberto Pandey MD #[address] [address] Health Maintenance Due Date Last Done Comments Cologuard 10/19/2011 Immunochemical Fecal Occult Blood 10/19/2011 Respiratory Syncytial Virus (RSV) Immunization (Adult) (1 - Risk 60-74 years 1-dose series) 2021 SARS-COV-2 Immunization (3 - 2023- season) 2024 11/16/2020, 10/19/2020 Diabetes: Eye Exam 06/07/2024 06/07/2023 Diabetes: Foot Exam 07/25/2024 07/25/2023 Diabetes: Hemoglobin A1c 10/02/2024 024, 11/14/2023, 07/21/2023, Additional history exists Diabetes: Nephropathy Screening 11/13/2024 11/14/2023, 07/21/2023, 03/21/2023, Additional history exists Pneumococcal Immunization (50+ years) (3 of 3 - PCV20 or PCV21) 11/27/2024 11/28/2019, 03/13/2018, 03/06/2018, Additional history exists Mammogram 06/12/2026 06/12/2024, 07/2022, 01/11/2022, Additional history exists Pap Smear 09/04/2026 09/05/2023 Cervical Cancer Screening (CCS) 09/04/2028 HPV/Cotest 09/04/2028 09/05/2023 Colonoscopy 06/09/2033 06/09/2023, 05/30, 03/10/2017 Colorectal Cancer Screening 06/09/2033 Td Immunization Every 10 Years (Adults With 1 Tdap) 08/28/2033 08/29/2023 06/09/2023, 03/10/2017 Hepatitis C Virus (HCV) Screening Completed 08/18/2018 Pneumococcal Immunization Combined Discontinued 11/28/2019, 03/13/2018, 03/06/2018, Additional history exists DTaP/Tdap/Td Immunization Discontinued 08/29/2023 Zoster Immunization Completed 10/07/2023, Influenza Immunization Completed , 03/08/2023, 04/09/2022, Additional history exists Hepatitis B Immunization Aged Out No longer eligible based on patient's age to complete this topic Meningococcal Immunization (ACWY) Aged Out No longer eligible based on patient's age to complete this topic Rotavirus Immunization Aged Out No lo nger eligible based on patient's age to complete this topic Medical Devices Implanted Type Area Bonbon Dipper Device Identifier Shelf Expiration Date Model / Serial / Lot Cement Bone Orthoset 1 40gm - [id number] Implanted:Qty: 1 on 02/21/2019 by [facility] IMPLANT Left: Knee [employer] 08/27/2021 [id number] / [id number] / [id number] Cement Bone Orthoset 1 40gm - [id number] Implanted:Qty: 1 on 02/21/2019 by [facility]ivas [facility] IMPLANT Left: Knee [employer] 08/27/2021 [id number] / [id number] / [id number] Insert Evolution Mp Tib Keeled Nonpor Size 4 Standard Left - [id number] Implanted:Qty: 1 on 02/21/2019 by Allan Rivas MD at [facility] IMPLANT Left: Knee [employer] 10/25/2026 [id number] / [id number] / [id number] Component Patellar Low Dome 7mm 25mm Recessed Advance All Poly - [id number] Implanted:Qty: 1 on 02/21/2019 by Allan [facility]ivas MD at [facility] IMPLANT Left: Knee [employer] 03/30/2026 [id number] / [id number] / [id number] Insert Evolution Mp Fem Cs/Cr Porous - [id number] Implanted:Qty: 1 on 02/21/2019 by Allan [facility]ivas MD at [facility] IMPLANT Left: Knee [employer] 05/31/2026 [id number] / [id number] / [id number] [employer] 1-Piece Iol Implanted:Qty: 1 on 11/21/2023 by Tammy Barboza MD PhD at [facility] IMPLANT Left: Eye [employer] 11/20/2025 [id number] / [id number] / [id number] Evolution Mp Cs 4+ Left Cs 10mm Thickness Implanted:Qty: 1 on 02/21/2019 by Allan Rivas MD at [facility] Left: Knee [employer] 09/23/2025 [id number] / [id number] / [id number] Technis 1-Piece Iol With Simplicity Delivery System Implanted:Qty: 1 on 12/19/2023 by Tammy Barboza MD PhD at [facility] Right: Eye 03/20/2026 [id number] / [id number] / [id number] Procedures Procedure Name Priority Date/Time Associated Diagnosis Comments CHARLA SCREENING BILATERAL DIGITAL W CAD W ELSA Routine 06/12/2024 3:18 PM [employer] Visit for screening mammogram HEMOGLOBIN A1C W/ ESTIMATED GLUCOSE Today 04/04/2024 1:46 PM [employer] Type 2 diabetes mellitus with microalbuminuria, without long-term current use of insulin (HCC) Pure hypercholesterolemia CMP (COMPREHENSIVE METABOLIC PANEL) Routine 11/14/2023 1:26 PM CDT Type 2 diabetes mellitus with microalbuminuria, without long-term current use of insulin (HCC) Current mild episode of major depressive disorder without prior episode (HCC) Pure hypercholesterolemia HUMAN PAPILLOMA VIRUS (HPV) Routine 09/05/2023 1:08 PM CDT Encounter for gynecological examination with abnormal finding Encounter for screening for human papillomavirus (HPV) PATHOLOGY CYTOLOGY COATING SUPERVISOR Routine 09/05/2023 1:08 PM CDT Encounter for gynecological examination with abnormal finding HEPATITIS PANEL ACUTE (AHP) Routine 08/18/2018 9:35 AM CDT Abnormal results of liver function studies Elevated liver enzymes from Last 3 Months or Most Recently Relevant to Health Maintenance Results * CHARLA SCREENING BILATERAL DIGITAL W CAD W ELSA (06/12/2024 3:18 PM [employer]GE[employer]) Anatomical Region Laterality Modality breast Bilateral Mammography 06/12/2024 3:24 PM [employer]GEANT Narrative 06/13/2024 4:06 PM [employer]GE[employer] - CHARLA SCREENING BILATERAL DIGITAL W CAD W ELSA BILATERAL DIGITAL SCREENING MAMMOGRAM 3D/2D WITH CAD WITH MEDIOLATERAL OBLIQUE CRANIOCAUDAL: 06/12/2024 The study was acquired using digital technology and interpreted from soft copy. Current study was also evaluated with ICAD version 7.2. 2D digital mammographic views, as well as 3D digital tomosynthesis were performed in the CC and MLO projections. CLINICAL: Routine screening. Patient has no complaints. No personal history of cancer. Maternal aunt had breast cancer. COMPARISONS: Comparison is made to exams dated: 01/11/2022, 03/01/2023, and 01/09/2021 [facility]. BREAST TISSUE:There are scattered areas of fibroglandular density. FINDINGS: No significant masses, calcifications, or other findings are seen in either breast. There has been no significant interval change. IMPRESSION: NEGATIVE There is no mammographic evidence of malignancy. A 1 year screening mammogram is recommended. A letter will be sent to the patient with these results. The patient will be entered into a reminder system with a target due date of 1 year for her next screening exam. Electronically signed by: Shanel bustillo/galileo:06/12/2024 17:03:25 Forest Economics Professor(s): RT Siddhartha(R)(M), [facility] letter sent: Normal Exam Reading location: [place] Mammogram BI-RADS: Category 1: Negative Procedure Note Shanel Beltran MD - 06/13/2024 - CHARLA SCREENING BILATERAL DIGITAL W CAD W ELSA BILATERAL DIGITAL SCREENING MAMMOGRAM 3D/2D WITH CAD WITH MEDIOLATERAL OBLIQUE CRANIOCAUDAL: 06/12/2024 The study was acquired using digital technology and interpreted from soft copy. Current study was also evaluated with ICAD version 7.2. 2D digital mammographic views, as well as 3D digital tomosynthesis were performed in the CC and MLO projections. CLINICAL: Routine screening. Patient has no complaints. No personal history of cancer. Maternal aunt had breast cancer. COMPARISONS: Comparison is made to exams dated: 01/11/2022, 03/01/2023, and 01/09/2021 [facility]. BREAST TISSUE:There are scattered areas of fibroglandular density. FINDINGS: No significant masses, calcifications, or other findings are seen in either breast. There has been no significant interval change. IMPRESSION: NEGATIVE There is no mammographic evidence of malignancy. A 1 year screening mammogram is recommended. A letter will be sent to the patient with these results. The patient will be entered into a reminder system with a target due date of 1 year for her next screening exam. Electronically signed by: Shnael bustillo/galileo:06/12/2024 17:03:25 Forest Economics Professor(s): RT Siddhartha(R)(M), [facility] letter sent: Normal Exam Reading location: [place] Mammogram BI-RADS: Category 1: Negative Remberto Pandey MD IMG MAMMO ORDERABLES Final Re sult * HEMOGLOBIN A1C W/ ESTIMATED GLUCOSE (04/04/2024 1:46 PM [employer]GE[employer]) HGB-A1C 5.6 4.0 - 6.0 % 04/04/2024 2:54 PM [employer]OL POLICE SERGEANT [facility] Est Average Glucose 114.0 mg/dL 04/04/2024 2:54 PM [employer]OL [employer] SERGEANT [facility] Blood Venipuncture / Unknown 04/04/2024 1:46 PM [employer]OL [employer]GEANT 04/04/2024 2:39 PM [employer]OL [employer] SERGEANT Narrative [facility] - 04/04/2024 2:54 PM [employer]OL [employer] SERGEANT HEMOGLOBIN A1C: DIABETIC PATIENTS: WELL-CONTROLLED: 6.2 - 7.0 INTERMEDIATE WELL-CONTROLLED: 7.0 - 9.0 POORLY-CONTROLLED: >9.0 Remberto Pandey MD CHEMISTRY ORDERABLES Final Re sult [facility] [address] [place] [address] * (ABNORMAL) CMP (COMPREHENSIVE METABOLIC PANEL) (11/14/2023 1:26 PM CDT) SODIUM 142 136 - 145 mmol/L 11/14/2023 4:20 PM CDT [facility] POTASSIUM 3.4(L) 3.5 - 5.1 mmol/L 11/14/2023 4:20 PM CDT [facility] CHLORIDE 106 98 - 107 mmol/L 11/14/2023 4:20 PM CDT [facility] CO2, VENOUS 27 22 - 30 mmol/L 11/14/2023 4:20 PM CDT [facility] ANION GAP 12.4 <18.0 mmol/L 11/14/2023 4:20 PM CDT [facility] GLUCOSE 119(H) 70 - 99 mg/dL 11/14/2023 4:20 PM CDT [facility] BUN 9(L) 10 - 20 mg/dL 11/14/2023 4:20 PM CDT [facility] CREATININE, BLOOD 0.65 0.60 - 1.00 mg/dL 11/14/2023 4:20 PM CDT [facility] BUN/CREATININE RATIO 14 12 - 20 ratio 11/14/2023 4:20 PM CDT [facility] TOTAL PROTEIN 7.1 6.3 - 8.2 g/dL 11/14/2023 4:20 PM CDT [facility] ALBUMIN 4.0 3.5 - 5.0 g/dL 11/14/2023 4:20 PM CDT [facility] A/G RATIO 1.3 1.0 - 2.2 11/14/2023 4:20 PM CDT [facility] CALCIUM 9.3 8.7 - 10.5 mg/dL 11/14/2023 4:20 PM CDT [facility] T BILI 0.6 0.2 - 1.2 mg/dL 11/14/2023 4:20 PM CDT [facility] SGOT (AST) 14 5 - 34 U/L 11/14/2023 4:20 PM CDT [facility] SGPT (ALT) 19 0 - 55 U/L 11/14/2023 4:20 PM CDT [facility] ALKALINE PHOSPHATASE 88 40 - 150 U/L 11/14/2023 4:20 PM CDT [facility] IS THE PATIENT REQUIRED TO BE FASTING? No 11/14/2023 4:20 PM CDT [facility] GFR, ESTIMATED >60 >=60 11/14/2023 4:20 PM CDT [facility] Comment: Creatinine Clearance is the preferred criteria for selecting drug dose adjustments in renally impaired patients. The GFR is provided as additional pertinent clinical information. GFR is reported in mL/min/1.73 sq m. Calculation based on the Chronic Kidney Disease Epidemiology Collaboration (CKD- EPI) equation refit without adjustment for race. GFR, EST. >60 >=60 024 4:20 PM CDT [facility] GFR, EST. NONAFRICAN >60 >=60 11/14/2023 4:20 PM CDT [facility] Blood Venipuncture / Unknown 11/14/2023 1:26 PM CDT 11/14/2023 1:26 PM CDT us Remberto Pandey MD CHEMISTRY ORDERABLES Final Re sult [facility] [address] [place] [address] * PATHOLOGY CYTOLOGY COATING SUPERVISOR (09/05/2023 1:08 PM CDT) SPECIMEN ADEQUACY Satisfactory for evaluation. Endocervical/transf ormation zone component is present. 09/09/2023 2:58 PM CDT [facility] DESCRIPTIVE DIAGNOSIS NEGATIVE FOR INTRAEPITHELIAL LESIONS OR MALIGNANCY. 09/09/2023 2:58 PM CDT [facility] R FINDINGS Atrophic hormonal pattern with abundant inflammatory cells. 09/09/2023 2:58 PM CDT [facility] Automated Examination Analysis of this sample has been assisted by an automated imaging and review system ([employer] System, [employer], [place], [place]). This case is further evaluated and finalized by a historical interpreter and/or pathologist. 09/09/2023 2:58 PM CDT [facility] Disclaimer The PAP smear is a screening test designed to detect cancerous or precancerous cells of the uterine cervix. It is one of the best means available for detection of cervical cancer but still carries an inherent false-negative rate. The consequences of a false-negative PAP result can be minimized by adhering to current screening guidelines. The following are general guidelines recommended by the ACS, ASCP, ASCCP, and ACOG: PAP testing is recommended every three years for women 21-29, Co-Testing , a PAP test in conjunction with an HPV (Human Papillomavirus) test for women ages 30-65, and no PAP or HPV testing for women under the age of 21 or older than 65 unless clinically indicated. 09/09/2023 2:58 PM CDT [facility] Case Report Gynecologic Cytology Report Case: [id number] Authorizing Provider: Ida Hair APRN, Collected: 09/05/2023 01:08 PM [place]OBARDO Ordering Location: [facility] Received: 09/05/2023 01:08 PM Medicine - [place] First Screen: Devora Giraldo Specimen: TP Screen, Cervix/Endocervix/V aginal 09/09/2023 2:58 PM CDT [facility] Other (Cervix/Endocerv ix/Vaginal) Non-Phlebotomy Collection / Unknown 09/05/2023 1:08 PM CDT 09/05/2023 1:08 PM CDT us Ida Hair APRN, CNP PATHOLOGY/CYTOLOGY O RDERABLES Final Result [facility] [address] [place] [address], * HUMAN PAPILLOMA VIRUS (HPV) (09/05/2023 1:08 PM CDT) HPV TYPE 16 NEGATIVE NEGATIVE 09/06/2023 2:37 PM CDT [facility] Comment: A negative high-risk HPV result does not exclude the possibility of future cytologic HSIL or underlying CIN2-3 or cancer. The presence of PCR inhibitors may cause false negative or invalid results. If concentrations of whole blood in the sample exceed 1.5% (dark red or brown coloration) in PreservCyt solution, there is a likelihood of obtaining a false-negative result. HPV TYPE 18 NEGATIVE NEGATIVE 09/06/2023 2:37 PM CDT [facility] Comment: A negative high-risk HPV result does not exclude the possibility of future cytologic HSIL or underlying CIN2-3 or cancer. The presence of PCR inhibitors may cause false negative or invalid results. If concentrations of whole blood in the sample exceed 1.5% (dark red or brown coloration) in PreservCyt solution, there is a likelihood of obtaining a false-negative result. HPV OTHER HIGH RISK TYPES, PCR NEGATIVE NEGATIVE 09/06/2023 2:37 PM CDT [facility] Comment: The following Other High Risk types were not detected: 31, 33, 35, 39, 45, 51, 52, 56, 58, 59, 66, and 68. A negative high-risk HPV result does not exclude the possibility of future cytologic HSIL or underlying CIN2-3 or cancer. The presence of PCR inhibitors may cause false negative or invalid results. If concentrations of whole blood in the sample exceed 1.5% (dark red or brown coloration) in PreservCyt solution, there is a likelihood of obtaining a false-negative result. HPV ORDER BE USED FOR SCREENING OR DIAGNOSTIC SCREENING 09/06/2023 2:37 PM CDT [facility] Other Non-Phlebotomy Collection / Unknown 09/05/2023 1:08 PM CDT 09/05/2023 1:08 PM CDT Narrative [facility] - 09/06/2023 2:37 PM CDT Performed by Real-Time Polymerase Chain Reaction (PCR) on the Divine Gilmer 4800. This assay has been validated for use with post-aliquot samples from the Zigswitch T5000 processor. us Ida Hair APRN, CNP LAB SEND OUTS [place]ling la Result [facility] [address] [place] [address], [facility] [address] [place] [address] * HEPATITIS PANEL ACUTE (AHP) (08/18/2018 9:35 AM CDT) HEPATITIS A IGM ANTIBODY NON DETECTED NON DETECTED 08/18/2018 11:08 PM CDT [facility] Comment: IGM Antibodies to HAV not detected. Does not exclude early acute or recovered HAV infection. HEP B CORE AB (IGM) NON DETECTED NON DETECTED 08/18/2018 11:08 PM CDT [facility] Comment: IGM anti-HBC not detected. Does not exclude the possibility of exposure to or infection with HBV. HEPATITIS B SURFACE ANTIGEN NON DETECTED NON DETECTED 08/18/2018 11:08 PM CDT [facility] Comment: A nonreactive test result does not exclude the possibility of exposure to or infection with Hepatitis B virus. A nonreactive test result in individuals with prior exposure to hepatitis B may be due to antigen levels below the detection limit of this assay or lack of antigen reactivity to the antibodies in this assay. hepatitis C antibody 0.08 <1 S/CO 08/18/2018 11:08 PM CDT [facility] Comment: Signal/Cutoff ratio < 0.79 is Nondetected Signal/Cutoff ratio 0.80-0.99 is Grayzone Signal/Cutoff ratio > 0.99 is Detected Supplemental assays are recommended if signal/cutoff ratio is >/=1.00. Signal/cutoff ratio result >/= 5.00 is 97% predictive of positivity for recombinant immunoblot assay (RIBA) and will be reported to the [place] Department of Public Health as required. Blood specimen (specimen) Venipuncture / Unknown 08/18/2018 9:35 AM CDT 08/18/2018 11:36 AM CDT us Samir Patino MD HEMATOLOGY ORDERABLES F inal Result [facility] [address] [place] [address], from Last 3 Months or Most Recently Relevant to Health Maintenance Insurance MEDICARE C AETNA Advance Directives * Full Code (Latest Code Status on File) Date Activated Date Inactivated Comments 03/01/2019 8:11 AM 06/09/2023 6:52 AM * Full Code Date Activated Date Inactivated Comments 03/12/2015 6:29 AM 06/08/2017 6:10 AM Care Teams Curing Pickling Packer Relationship Specialty Start Date End Date Remberto Pandey MD #2 [facility] [address] [place] [address] PCP - General Family Medicine 07/13/22 John Aquino MD #2 [facility] [address] [place] [address] Consulting Physician Colon and Rectal Surgery 05/06/23
--- OUTSIDE RECORDS SUMMARY | 2024-07-12 16:23 | XMS_ITS | Encounter Summary ---
Author Organization [facility] Address [address] [place] [address] Phone Care Team Providers Care Quill Collector Name Role Phone Remberto Pandey MD Primary Care Provider [phone] John Aquino MD Unavailable Encounter Details Date Type Department Care Team (Late st Contact Info) Description 06/13/2024 Results Follow-Up [facility] - [facility] [address] [place] [address] Remberto Pandey MD #[address] [address] Social History Tobacco Use Types Packs/Day Years Used Date Smoking Tobacco: Never Smokeless Tobacco: Never Alcohol Use Standard Drinks/Week Comments Yes 1 (1 standard drink = 0.6 oz pure alcohol) ocassionally mixed drinks ONCE OR TWICE A MONTH [facility] Utilities Answer Date Recorded In the past 12 months has e [employer], gas, oil, or water company threatened to shut off services in your [...] often do you attend chur ch or worship services? Patient declined 11/25/2023 Do you belong to any clubs o r organizations such as restoration groups, unions, fraternal or athletic groups, or [...] Total Score - Questions 1-9 0 01/28 [facility] - [...] place to sleep or slept in a long-term (including now)? No 07/23/2023 Education Answer Date [...] on file documented as of this encounter Plan of Treatment Upcoming Encounters Date Type Department Care Team (Late st Contact Info) Description 07/31/2024 2:00 PM PAVER Lab [facility] #[address] [address] [facility] [place] [facility]/Ancillary 08/07/2024 1:30 PM CDT Office Visit [facility] - [facility] - [place] [address] [place] [address] Remberto Pandey MD #[address] [address] documented as of this encounter Visit Diagnoses Not on filedocumented in this encounter Additional Health Concerns Assessment Noted Time PHQ-9 Depression Total Score: 0 02/14/20 24 10:17 AM CDT documented as of this encounter Care Teams Quill Collector Relationship Specialty Start Date End Date Remberto Pandey MD [address] [address] PCP - General Family Medicine 07/13/22 John Aquino MD #2 [place] [address] Consulting Physician Colon and Rectal Surgery 05/06/23 documented as of this encounter
--- OUTSIDE RECORDS SUMMARY | 2024-07-12 16:23 | XMS_ITS | Encounter Summary ---
Author Organization [facility] Address [address] [place] [address] Phone Care Team Providers Care Canvas Cutter Machine Name Role Phone Remberto Pandey MD Primary Care Provider [phone] John Aquino MD Unavailable Reason for Visit * Reason Comments Medication Refill Encounter Details Date Type Department Care Team (Late st Contact Info) Description 09/28/2023 Refill [facility] Group - Family Medicine [facility] [address] [place] [address] Remberto Pandey MD #[address] [address] Medication Refill Social History Tobacco Use Types Packs/Day Years Used Date Smoking Tobacco: Never Smokeless Tobacco: Never Alcohol Use Standard Drinks/Week Comments Yes 1 (1 standard drink = 0.6 oz pure alcohol) ocassionally mixed drinks ONCE OR TWICE A MONTH [facility] Utilities Answer Date Recorded In the past 12 months has [employer], gas, oil, or water [facility] threatened to shut off services in your home? No 07/23/2023 Social Connection and Isolation Panel [NHANES] A nswer Date Recorded In a typical week, how many times do you talk on the phone with family, friends, or neighbors? Patient declined 07/23/2023 How often do you get togethe r with friends or relatives? Patient declined 07/23/2023 How often do you attend hindu or mosque serv ices? Patient declined 07/23/2023 Do you belong to any clubs o r organizations such as hindu groups, unions, fraternal or athletic groups, or [...] Total Score - Questions 1-9 0 07/01 [facility] - Occupational Stress Questionnaire Answer Date Recorded [...] to sleep or slept in a senior living (including now)? No 07/23/2023 Education Answer Date [...] Telephone Encounter - Olive Merino RN - 09/29/2023 8:34 AM CDT New Rx 08/31/23 - Continue current dose? Per nursing clinical judgement, provider to review and approve the medication(s) order(s) if appropriate. Requested Prescriptions Pending Prescriptions Disp Refills Ozempic, 1 MG/DOSE, 4 MG/3ML Solution Pen-injector [Pharmacy Med Name: Ozempic (1 MG/DOSE) 4 MG/3MLSubcutaneous Solution Pen-injector] 3 mL 0 Sig: INJECT 1 MG SUBCUTANEOUSLY ONCE A WEEK GLP-1 Agonists Protocol Passed - 09/28/2023 2:24 PM Passed - Lipid panel result on [...] 09/05/23 Office Visit Ida Hair APRN, LEOBARD[facility] 08/31/23 Office Visit Remberto Pandey MD [facility] [place] 07/25/23 Office Visit Remberto Pandey MD [facility] Showing recent visits within past 182 days and meeting all other requirements Future Appointments Date Type Provider Dept 11/21/23 Appointment Remberto Pandey MD [facility] [place] Showing future appointments within next 90 days [...] st Contact Info) Description 07/31/2024 2:00 PM UNDERGRADUATE INTERNSHIP Lab [facility] #[address] [address] [place] [facility] Lab/Ancillary 08/07/2024 1:30 PM CDT [facility] - [place] [facility] [place] [address] Remberto Pandey MD #[address] [place] [address] documented as of this encounter Visit Diagnoses Not on filedocumented in this encounter Additional Health Concerns Assessment Noted Time PHQ-9 Depression Total Score: 0 07/25/19 2:50 PM UNDER[employer]UATE INTERNSHIP documented as of this encounter Care Teams Canvas Cutter Machine Relationship Specialty Start Date End Date Remberto Pandey MD #2 [facility] [address] [place] [address] PCP - General Family Medicine 07/13/22 John Aquino MD #2 [facility] [address] [place] [address] Consulting Physician Colon and Rectal Surgery 05/06/23 documented as of this encounter
--- OUTSIDE RECORDS SUMMARY | 2024-07-12 16:23 | XMS_ITS ---
Author Organization [facility] Address [address] [place] [address] Phone Care Team Providers Care Harvest Worker Fruit Name Role Phone Unavailable Unavailable Unavailable Plan of Treatment No Plan of Treatment Recorded Assessments Includes: Assessments for all patient encounters No Assessments Recorded Medical Equipment - Implanted Devices Includes: Current and historical Devices No Medical Equipment Recorded Medications Administered Includes: Administered Medications in patient's chart No Administered Medications Recorded Results Includes: Results from 07/12/2023 through 07/12/2024 No Results Recorded For Specified Dates History of Present Illness History of Present Illness not supported for this document type No History of Present Illness Recorded Social History No Social History Recorded - Smoking Status Unknown Medical History Includes: Medical History in patient's chart No Medical History Recorded Family History Includes: Family History in patient's chart No Family History Recorded Review of Systems Review of Systems not supported for this document type No Review of Systems Recorded Mental Status No Mental Status Recorded Functional Status No Functional Status Recorded Physical Exam Physical Exam not supported for this document type No Physical Exam Recorded Clinical Notes Includes: Signed Clinical Notes starting from 06/18/2022 No Clinical Notes Recorded
--- OUTSIDE RECORDS SUMMARY | 2024-07-12 16:23 | XMS_ITS | Patient Health Summary ---
Author Organization [facility] Address [address] [place] [address] Care Team Providers Care Rouge Sifter Name Role Phone KennedyGilbert APRN-ABNORMAL PSYCHOLOGY TEACHER Primary Care Provider Note from [facility],non-owned Affiliates and Associated Physician Practices is amultiple site organization consisting of ambulatory clinics and hospital sitesin [place], [place], [place] and [place]. This disclosure is being madepursuant to the Care Everywhere program and may not contain all information available regarding this patient. Last updated 18.[facility] Social History Tobacco Use Types Packs/Day [...] Mass Index 39.98 08/30/2018 1:16 PM CDT Procedures * CT LIVER ELASTOGRAPHY(Performed 08/31/2018) Performed for Elevated liver enzymes Results * CT LIVER ELASTOGRAPHY (08/31/2018 8:57 PM CDT) Narrative Alverto Woodard MD - 08/31/2018 8:57 PM CDT Alverto Woodard MD 08/31/2018 8:57 PM Diagnosis: Elevated Liver Enzymes RN verified patient not , no implanted devices and NPO for prior 3 hours. Vital signs taken, procedure explained and consent signed. Date of Exam: 08/30/2018 Liver Stiffness: (E, kPa) median: 5.7 IQR (interquartile range): 1.1 IQR/Median% (ideally < 30%): 19 CAP (controlled attenuation parameter): 347 Technical Difficulty: None Ordering Provider: Samir Patino MD Fibroscan interpretation: I have personally reviewed the Fibroscan report and associated tracings. The calculated liver stiffness (E, kPa) indicates that: The probability of advanced liver fibrosis is: low. The loss of ultrasound signal, (controlled attenuation parameter, CAP [dB/m]), indicates that the probability of hepatic steatosis is: high. Alverto Woodard MD The following criteria are used to indicate the probability of advanced (stage 3-4) fibrosis: < 7.0 kPa: low 7.0-8.9 kPa: low to moderate 9.0-14.9 kPa: moderate 15-20 kPa: high > 20 kPa: very high Liver stiffness > 20 kPa is also associated with a high probability of complications of portal hypertension including varices and ascites. Liver stiffness > 50 kPa is associated with a high risk of variceal bleeding. Note: Liver stiffness is increased by factors other than fibrosis including passive congestion, infiltrative processes, active alcoholism, biliary obstruction and marked inflammation. The interpretation of the Fibroscan result provided above may not have taken such factors into account. Disease etiology also influences Fibroscan cutoff values for fibrosis stages and the following cutoffs have been proposed (Teri et al, Clin Gastro Hepatol 2015; 13:27-36): Cutoffs for Stage 3 and Stage 4 fibrosis respectively: Hepatitis B: >9 and >11.7 kPa Hepatitis C: >9.5 and >12.5 kPa HCV-HIV: >11 and >14 kPa Cholestatic liver diseases: >10 and >17.9 kPa NAFLD/CASILLAS: >10 and >14 kPa CAP estimates of steatosis: normal <200 dB/m maybe present 200 to 250 dB/m moderate 250-300 dB/m substantial > 300 dB/m (Note that Fibroscan is not a quantitative measure of liver fat and the risk of NAFLD progression is unrelated to the degree of steatosis.) These criteria are estimates and may change as additional supporting data becomes available. [email or web address]/[email or web address]-[email or web address]-[email or web address] Alverto Travis MD PROCEDURE/ MINOR SURGICAL ORDERABLES Care Teams Rouge Sifter Relationship Specialty Start Date End Date Gilbert Kennedy, CREW MEMBER-ABNORMAL PSYCHOLOGY TEACHER [address] [place] [address] PCP - General 08/30/18
--- OUTSIDE RECORDS SUMMARY | 2024-07-12 16:23 | XMS_ITS ---
Care Plan - [facility] Created on: July 12, 2024 GABRIEL RAYMOND : 1960 Sex: Female Author Organization [facility] Address [address] [place] [address] Phone Care Team Providers Care Computer Instructor Name Role Phone Unavailable Unavailable Unavailable
--- OUTSIDE RECORDS SUMMARY | 2024-07-12 16:23 | XMS_ITS | Clinical Summary ---
Author Organization [facility] Address [address] [place] [address] Care Team Providers Care Barrel Roller Operator Name Role Phone Gilbert Kennedy APRN-GAS UTILITY WORKER Primary Care Provider Source Comments [facility],non-owned Affiliates and Associated Physician Practices is amultiple site organization consisting of ambulatory clinics and hospital sitesin [place], [place], [place] and [place]. This disclosure is being madepursuant to the Care Everywhere program and may not contain all information available regarding this patient. Last updated 18.[facility] Social History Tobacco Use Types Packs/Day Years [...] 08/30/2018 1:16 PM CDT Plan of Treatment Health Maintenance Due Date Last Done Comments HANDY (AGES 45-75) - COL ON CA SCREENING 1960 COLON MONITORING 1961 COLONOSCOPY - COLON CA SCREENING 1961 CT COLONOGRAPHY - COLON CA SCREENING 1960 Colorectal Cancer Screening 1960 FIT - COLON CA SCREENING 1961 FLEX SIG - COLON CA SCREENING 1961 LIPID TESTING 1960 MAMMOGRAM 1961 PAP SMEAR 1961 HIV SCREENING 1976 HEPATITIS C SCREENING 10/14/1979 DTAP/TDAP/TD VACCINES (1 - Tdap) 1980 PNEUMOCOCCAL VACCINE 50+ (1 of 1 - PCV) 10/19/2011 ZOSTER VACCINE (1 of 2) 10/19/2011 SCREENING FOR DIABETES 08/30/2018 COVID-19 VACCINE (1 - 2023-2 5 season) 2024 INFLUENZA VACCINE (#1) 2024 DEPRESSION SCREENING 05/30/2024 MEDICARE AWV CALENDAR YEAR 2024 Respiratory Syncytial Virus (RSV) Vaccine Pt: or over 60 yrs (1 - 1-dose 75+ series) 2036 HEPATITIS B VACCINE Aged Out No longe r eligible based on patient's age to complete this topic HIB VACCINE Aged Out No longer eligi ble based on patient's age to complete this topic HPV VACCINE Aged Out No longer eligi ble based on patient's age to complete this topic MENINGOCOCCAL (Group B) VACCINE Aged Out No longer eligible based on patient's age to complete this topic MENINGOCOCCAL VACCINE Aged Out No dee josephine eligible based on patient's age to complete this topic PNEUMOCOCCAL VACCINE Aged Out No long er eligible based on patient's age to complete this topic Care Teams Barrel Roller Operator Relationship Specialty Start Date End Date Gilbert Kennedy, CLOTH WINDER MACHINE OPERATOR-GAS UTILITY WORKER [address] [place] [address] PCP - General 08/30/18
--- OUTSIDE RECORDS SUMMARY | 2024-07-12 16:23 | XMS_ITS | Encounter Summary ---
Author Organization [facility] Address [address] [place] [address] Phone Care Team Providers Care Resident Surgeon Name Role Phone Remberto Pandey MD Primary Care Provider [phone] John Aquino MD Unavailable Reason for Visit * Reason Comments Medication Refill Encounter Details Date Type Department Care Team (Late st Contact Info) Description 07/07/2023 Refill [facility] - Family Medicine [facility] #[address] [place] [address] Remberto Pandey MD #[address] [address] Medication Refill Social History Tobacco Use Types [...] Telephone Encounter - Olive Merino RN - 07/07/2023 10:17 AM CST Medication failed the protocol, provider to review and approve the medication order if appropriate. Requested Prescriptions Pending Prescriptions Disp Refills glipiZIDE (GLUCOTROL) 10 MG Tablet [Pharmacy Med Name: glipiZIDE 10 MG Oral Tablet] 90 Tablet 0 Sig: Take 1 tablet by mouth once daily Sulfonylureas Protocol Passed - 07/07/2023 6:51 AM Passed - Visit with relevant provider in past 6 months or upcoming 90 days Recent Visits Date Type Provider Dept 03/28/23 Office Visit Remberto Pandey MD [facility] 03/08/23 Office Visit Remberto Pandey MD [facility] Showing recent visits within past 182 days and meeting all other requirements Future Appointments Date Type Provider Dept 07/25/23 Appointment Remberto Pandey MD [facility] Showing future appointments within next 90 days and meeting all other requirements Passed - HgA1C on record in past 6 months HGB-A1C Date Value Ref Range Status 03/21/2023 7.7 (H) 4.0 - 6.0 % Final Passed - GFR on record in past 6 months GFR, EST. NONAFRICAN Date Value Ref Range Status 03/21/2023 >60 >=60 Final losartan (COZAAR) 25 MG Tablet [Pharmacy Med Name: Losartan Potassium 25 MG Oral Tablet] 90 Tablet 0 Sig: TAKE 1 TABLET BY MOUTH ONCE DAILY IN THE MORNING ARB Protocol Passed - 07/07/2023 6:51 AM Passed - Serum potassium on record in past 12 months POTASSIUM Date Value Ref Range Status 03/21/2023 4.0 3.5 - 5.1 mmol/L Final Passed - BP on record in the past year Clinician-entered: BP Readings from Last 3 Encounters: 06/09/23 119/73 05/12/23 112/80 03/28/23 130/71 Patient-entered: No data recorded Passed - Visit with relevant provider in past year or upcoming 90 days Recent Visits Date Type Provider Dept 03/28/23 Office Visit Remberto Pandey MD [facility] 03/08/23 Office Visit Remberto Pandey MD [facility] 11/22/22 Office Visit Remberto Pandey MD [facility] 07/13/22 Office Visit Remberto Pandey MD [facility] Showing recent visits within past 365 days and meeting all other requirements Future Appointments Date Type Provider Dept 07/25/23 Appointment Remberto Pandey MD [facility] Showing future appointments within next 90 days and meeting all other requirements Passed - GFR on record in past 12 months GFR, EST. NONAFRICAN Date Value Ref Range Status 03/21/2023 >60 >=60 Final gabapentin (NEURONTIN) 300 MG Capsule [Pharmacy Med Name: Gabapentin 300 MG Oral Capsule] 180 Capsule 0 Sig: Take 1 capsule by mouth twice daily Not Delegated - Anticonvulsants Excluding Benzodiazepines Protocol Failed - 07/07/2023 6:51 AM Failed - This refill cannot be delegated Passed - Visit with relevant provider in past 12 months or upcoming 90 days Recent Visits Date Type Provider Dept 03/28/23 Office Visit Remberto Pandey MD [facility] 03/08/23 Office Visit Remberto Pandey MD [facility] 11/22/22 Office Visit Remberto Pandey MD [facility] 07/13/22 Office Visit Remberto Pandey MD [facility] Showing recent visits within past 365 days and meeting all other requirements Future Appointments Date Type Provider Dept 07/25/23 Appointment Remberto Pandey MD [facility] Showing future appointments within next 90 days and meeting all other requirements DULoxetine (CYMBALTA) [address] Particles [Pharmacy Med Name: DULoxetine HCl 60 MG Oral Capsule Delayed Release Particles] 90 Capsule 0 Sig: Take 1 capsule by mouth once daily SNRI (6 Month Refill Only) Protocol Failed - 07/07/2023 6:51 AM Failed - Has an encounter in the past 6 months with a depression or anxiety visit diagnosis Passed - Visit with relevant provider in past 6 months or upcoming 90 days Recent Visits Date Type Provider Dept 03/28/23 Office Visit Remberto Pandey MD [facility] 03/08/23 Office Visit Remberto Pandey MD [facility] Showing recent visits within past 182 days and meeting all other requirements Future Appointments Date Type Provider Dept 07/25/23 Appointment Remberto Pandey MD [facility] Showing future appointments within next 90 days and meeting all other requirements Passed - Patient has established therapy with Serotonin-Norepinephrine Reuptake Inhibitors for at least 6 months OPHYSICS TEACHER documented in this encounter Plan of Treatment Upcoming Encounters Date Type Department Care Team (Late st Contact Info) Description 07/31/2024 2:00 PM ASTROPHYSICS TEACHER Lab [facility] #[address] [address] [facility] [place] Lab/Ancillary 08/07/2024 1:30 PM CDT Office Visit [facility] - [place] #[address] [place] [address] Remberto Pandey MD #[address] [address] documented as of this encounter Visit Diagnoses Not on filedocumented in this encounter Additional Health Concerns Assessment Noted Time PHQ-9 Depression Total Score: 0 03/08/20 23 2:31 PM CDT documented as of this encounter Care Teams Resident Surgeon Relationship Specialty Start Date End Date Remberto Pandey MD #[address] [place] [address] PCP - General Family Medicine 07/13/22 John Aquino MD #[address] [place] [address] Consulting Physician Colon and Rectal Surgery 05/06/23 documented as of this encounter
--- OUTSIDE RECORDS SUMMARY | 2024-07-12 16:23 | XMS_ITS | Encounter Summary ---
Author Organization [facility] Address [address] [place] [address] Phone Care Team Providers Care Physical Integration Practitioner Name Role Phone Remberto Pandey MD Primary Care Provider [phone] John Aquino MD Unavailable Reason for Visit * Reason Comments Medication Refill Encounter Details Date Type Department Care Team (Late st Contact Info) Description 11/15/2022 Refill [facility] [address] [place] [address] Cristian Gibbons MD [address] [place] [address] Medication Refill Social History Tobacco Use Types Packs/Day Years Used Date Smoking Tobacco: Never Smokeless Tobacco: Never Alcohol Use Standard Drinks/Week Comments No 0 (1 standard drink = 0.6 oz pur e alcohol) PHQ-2 Answer Date Recorded Total Score - Questions 1-9 0 06/30 Education Answer Date Recorded What is the highest level of school you have completed or the highest degree you have received? 10th grade 07/12/2022 Comments No Sex and Gender Information Value Date Recorded Sex Assigned at Not on file Legal Sex Female 7:23 PM CDT Gender Identity Not on file Sexual Orientation Not on file COVID-19 Exposure Response Date Recorded In the last 10 days, have yo u been in contact with someone who was confirmed or suspected to have Coronavirus/COVID-19? No / Unsure 10/19/2022 4:35 PM CDT documented as of this encounter Plan of Treatment Upcoming Encounters Date Type Department Care Team (Late st Contact Info) Description 07/31/2024 2:00 PM TANK TRUCK OPERATOR Lab [facility] [address] [address] [facility]/Ancillary 08/07/2024 1:30 PM CDT Office Visit [facility] [place] [address] [place] [address] Remberto Pandey MD [address] [facility] [address] [place] [address] documented as of this encounter Visit Diagnoses Diagnosis OAB (overactive bladder) Hypertonicity of bladder documented in this encounter Additional Health Concerns Assessment Noted Time PHQ-9 Depression Total Score: 0 07/13/19 1:00 PM TANK TRUCK OPERATOR documented as of this encounter Care Teams Physical Integration Practitioner Relationship Specialty Start Date End Date Remberto Pandey MD [address] [address] PCP - General Family Medicine 07/13/22 John Aquino MD [address] [address] Consulting Physician Colon and Rectal Surgery 05/06/23 documented as of this encounter
--- OUTSIDE RECORDS SUMMARY | 2024-07-12 16:25 | XMS_ITS ---
Care Plan - [facility] Created on: July 12, 2024 GABRIEL RAYMOND : 1960 Sex: Female Author Organization [facility] Address [address] [place] [address] Phone Care Team Providers Care Level Vial Sealer Name Role Phone Unavailable Unavailable Unavailable
--- OUTSIDE RECORDS SUMMARY | 2024-07-12 16:25 | XMS_ITS ---
Author Organization [facility] Address [address] [place] [address] Phone Care Team Providers Care Balance Truer Name Role Phone Unavailable Unavailable Unavailable Plan [...]
--- OUTSIDE RECORDS SUMMARY | 2024-07-12 16:25 | XMS_ITS | Clinical Summary ---
Author Organization [facility] Address [address] [place] [address] Phone Care Team Providers Care Psychiatric Social Worker Supervisor Name Role Phone Unavailable Unavailable Unavailable Reason [...]
[2024-07-12 16:40] VITALS: BP 124/64; PULSE 73; RESP 20; TEMP 37.2; O2SAT 98
--- NOTE | 2024-07-12 18:41 | ED_ITS ---
HPI - URI/Sore Throat General Chief Complaint: Upper Respiratory Infection Stated Complaint: throat/ears/blister on tongue Time Seen by Provider: 07/12/24 18:20 Source: patient, RN notes reviewed and old records reviewed Mode of arrival: ambulatory Limitations: no limitations History of Present Illness HPI Narrative: 63 year old female who presents to [facility] with complaints of sore throat, right ear pain, headache and cough for a few days and blister to the right side of her tongue. Patient reports blister was on tongue prior to other symptoms. Patient denies any shortness of breath or any nausea vomiting or diarrhea. Patient reports no known ill contacts. Patient reports that she has taken DayQuil NyQuil Tylenol and used cough drops MD elicited complaint: sore throat and other (right ear pain, headache, cough and blister on tongue) Onset (ago): day(s) (3) Pain scale (0-10): 9 Able to tolerate fluids by mouth: Yes Treatments prior to arrival: other (DayQuil,NyQuil, cough drops and Tylenol.) Related Data Home Medications ?Medication ?Instructions ?Recorded ?Confirmed ?Last Taken ?Type atorvastatin 20 mg tablet 20 mg PO DAILY 05/10/19 12/19/22 Unknown History duloxetine 60 mg capsule,delayed 60 mg PO DAILY 05/10/19 12/19/22 Unknown History release omeprazole 20 mg tablet,delayed 20 mg PO BID 05/10/19 12/19/22 Unknown History release gabapentin 600 mg tablet 600 mg PO BID 08/03/21 12/19/22 Unknown History diclofenac sodium 50 mg 50 mg PO BID 12/14/22 12/19/22 Unknown History tablet,delayed release empagliflozin 10 mg tablet 10 mg PO DAILY 12/14/22 12/19/22 Unknown History (Jardiance) glipizide 10 mg tablet 10 mg PO DAILY 12/14/22 12/19/22 Unknown History hydrochlorothiazide 25 mg tablet 25 mg PO DAILY 12/14/22 12/19/22 Unknown History losartan 25 mg tablet 25 mg PO DAILY 12/14/22 12/19/22 Unknown History oxybutynin chloride 5 mg tablet mg 12/14/22 Unknown History gabapentin 300 mg capsule mg 07/12/24 Unknown History meloxicam 7.5 mg tablet mg 07/12/24 Unknown History omeprazole 20 mg capsule,delayed mg 07/12/24 Unknown History release pioglitazone 30 mg tablet mg 07/12/24 Unknown History tirzepatide 2.5 mg/0.5 mL mg subcut 07/12/24 Unknown History subcutaneous pen injector (Mounjaro) triamcinolone acetonide 0.1 % applic topical 07/12/24 Unknown History topical cream Allergies Allergy/AdvReac Type Severity Reaction Status Date / Time No Known Allergies Allergy Verified 07/12/24 16:53 Review of Systems Review of Systems: CONSTITUTIONAL: Reports malaise, chills, sweats, or fever. EYES: Denies visual changes, redness, or discharge. ENT: Reports rhinorrhea, congestion, no sinus pain, right otalgia and positive for sore throat. CARDIOVASCULAR: Denies chest pain, palpitations, or edema. RESPIRATORY: Reports cough.? Denies dyspnea. GASTROINTESTINAL: Denies abdominal pain, nausea, vomiting, diarrhea SKIN: Denies rash or itching. MUSCULOSKELETAL: Denies myalgia. NEUROLOGIC:Reports headache. All systems reviewed & are unremarkable except as noted in HPI and below PMFSH Past Medical History Medical History Otitis media Arthritis Anxiety and depression Neuropathy Hyperlipidemia Hypertension Diabetes Surgical History Surgical History History of total left knee replacement (TKR) H/O elbow surgery bilateral ulnar nerve release Hx of LASIK History of placement of ear tubes History of carpal tunnel release bilateral History of shoulder surgery Bilateral History of total right knee replacement (TKR) Social History Social History Smoking status: Never smoker Alcohol intake: unknown Substance use: never Living arrangements: with family Gender identity (if verbalized by the patient): Female Comments At time of signature, agree with nursing past medical, surgical, social and family history. There is no relevant family history pertinent to the presenting complaint Exam Narrative: GENERAL: Well-appearing, well-nourished, and in no acute distress. HEAD: Normocephalic EYES: PERRLA, conjunctivae clear ENT: Nares clear, turbinates edematous and erythematous, clear discharge. Mucous membranes moist Right TM red, Left TM pearly prieto with dull light reflex bilaterally; no tragal tenderness. Oropharynx erythematous without lesions. Tonsils not enlarged and without exudate, no drooling, no hoarseness, no trismus, uvula midline.post nasal drainage, bloster noted to right side of tongue reports pain to area. NECK: Supple. No lymphadenopathy CHEST: Clear to auscultation, breath sounds equal. No wheezing, rhonchi, rales, or stridor. No respiratory distress, speaks in full sentences.cough, SAO2 98% on room air HEART: Regular rate and rhythm. No murmur heard. SKIN: Warm, dry, no rash. NEURO: Alert and oriented x3. PSYCH: Normal mood and affect Course Course Emergency Course: Patient is aware of diagnosis, understands and agrees to treatment plan.? Anticipatory guidance given.? Patient agrees to follow-up as directed and is aware of reasons to seek care at the emergency department. Portions of this record may have been created with voice recognition software Level of Care: Express Care Visit Vital Signs Vital signs: Vital Signs Temperature 37.2 C 07/12/24 16:40 Pulse Rate 73 07/12/24 16:40 Respiratory Rate 20 07/12/24 16:40 Blood Pressure 124/64 07/12/24 16:40 Pulse Oximetry 98 07/12/24 16:40 Oxygen Delivery Room Air 07/12/24 16:40 Temperature 37.2 C 07/12/24 16:40 Pulse Rate 73 07/12/24 16:40 Respiratory Rate 20 07/12/24 16:40 Blood Pressure 124/64 07/12/24 16:40 Pulse Oximetry 98 07/12/24 16:40 Oxygen Delivery Room Air 07/12/24 16:40 Reviewed MDM - URI/Sore Throat MDM Narrative Medical decision making narrative: Differential diagnosis considered: Pope virus, strep pharyngitis, allergic r hinitis, upper respiratory tract infection, sinusitis, rhinosinusitis, nasopharyngitis. viral pharyngitis, otitis media, otitis externa, pneumonia, bronchitis, viral cough syndrome, viral syndrome, and influenza.? Exam findings show no acute concerns or changes; patient is non-toxic appearing and is in no distress.? Patient is appropriate for outpatient treatment and follow-up. Differential Diagnosis Differential diagnosis: Likely upper respiratory infection, otitis media, viral infection, influenza, pharyngitis and other (strep COVID) Medical Records Attestation: I reviewed the patient's medical records. Lab Data Attestation: I reviewed the patient's lab results. Lab results narrative: Influenza A negative, Influenza B negative, COVID antigen negative, strep screen negative Labs: Lab Results 07/12/24 Range/Units 16:55 POC Influenza A Ag Negative (Negative) POC Influenza B Ag Negative (Negative) POC SARS CoV-2 Ag Negative (Negative) POC Grp A Strep Screen Negative (Negative) Critical Care Time Critical Care Time Critical Care Time: No Discharge Plan Discharge Clinical Impression: Infection of right ear Patient Disposition: Home, Self-Care Condition: Stable Instructions: Ear Infection (GEN) Additional Instructions: Increase fluids especially juices and water [id number] cough and cold medicine of your choice for your symptoms Cough tablets as directed for cough--do not bite, chew or suck on--swallow whole Magic mouthwash use as prescribed heat to the face 20-30 minutes 4-6 times a day for pain Salt water gargles, throat lozenges or throat sprays as desired Antibiotic as directed--finished the medication If your symptoms persist, change or worsen significantly before you can contact your personal physician then please, without delay, go to the emergency department for further evaluation. Follow-up with PCP in 7-10 days or sooner if needed Patient Language: Liberian Prescriptions: New amoxicillin 500 mg capsule 500 mg PO Q8H Qty: 30 0RF Magic Mouthwash (Dr. Stockton) 120 mL suspension 3 ml PO TID Qty: 120 0RF Rx Instructions: diphenhydramine 12.5 mg/5 mL oral elixir 40 mL; Lidocaine Viscous 2 % mucosal solution 40 mL; Maalox 200 mg-200 mg-20 mg/5 mL oral suspension 40 mL; Per 120 mL swish and swallow benzonatate 200 mg capsule 200 mg PO TID PRN (Reason: cough) Qty: 20 0RF No Action atorvastatin 20 mg Tablet 20 mg PO DAILY duloxetine 60 mg Capsule,Delayed Release(Dr/Ec) 60 mg PO DAILY omeprazole 20 mg Tablet,Delayed Release (Dr/Ec) 20 mg PO BID gabapentin 600 mg tablet 600 mg PO BID glipizide 10 mg tablet 10 mg PO DAILY losartan 25 mg tablet 25 mg PO DAILY hydrochlorothiazide 25 mg tablet 25 mg PO DAILY diclofenac sodium 50 mg tablet,delayed release (DR/EC) 50 mg PO BID oxybutynin chloride 5 mg tablet Jardiance 10 mg tablet 10 mg PO DAILY triamcinolone acetonide 0.1 % cream TOPICAL meloxicam 7.5 mg tablet gabapentin 300 mg capsule omeprazole 20 mg capsule,delayed release(DR/EC) pioglitazone 30 mg tablet Mounjaro 2.5 mg/0.5 mL pen injector SUBCUT Follow-up/Referrals: Katherin,Remberto Pineda MD [Primary Care Provider] - Time of Disposition: 18:55 Quality [place] Coma Scale Eyes: Open Verbal: Oriented and Alert Motor: Follows Commands [place] Coma Total Score: 15
[2024-07-12 19:04] LABS: EDCOVIDSCREEN Negative (Negative); EDINFLUASCREEN Negative (Negative); EDINFLUBSCREEN Negative (Negative); EDSTREPNEGPOS1 Negative (Negative)
== END 2024-07-12 18:55 | disposition home or self-care (01) ==
PROVIDERS: Emergency Provider Registered Nurse; PCP Internal Medicine
DX: H66.91 Otitis media, unspecified, right ear (principal); I10 Essential (primary) hypertension; E11.9 Type 2 diabetes mellitus without complications; E78.5 Hyperlipidemia, unspecified; Z79.899 Other long term (current) drug therapy; Z79.1 Long term (current) use of non-steroidal anti-inflammatories (NSAID); Z20.822 Contact with and (suspected) exposure to COVID-19
CPT/HCPCS: 87081; 87426; 87804; 87880; 99213; G0463

== ENCOUNTER 2024-08-23 13:49 | Emergency (ER) | payer MEDICARE, SELFPAY ==
[2024-08-23 14:20] VITALS: BP 127/74; PULSE 66; RESP 20; TEMP 36.6; O2SAT 96
--- OUTSIDE RECORDS SUMMARY | 2024-08-23 14:39 | XMS_ITS | Clinical Summary ---
Author Organization [facility] Address [address] [address] Phone Care Team Providers Care Weapons Designer Name Role Phone Remberto Pandey MD Primary Care Provider [phone] John Aquino MD Unavailable Allergies Active Allergy Reactions Criticality Noted Date Comments Metformin Diarrhea 08/16/2022 Sulfa Antibiotics Other (see Comments) Medium 06/08/19 18 blisters Medications MULTIPLE VITAMIN PO Take 1 Tablet by mouth daily. Active oxybutynin (DITROPAN) 5 MG TabletIndicati ons:OAB (overactive bladder) Take 1 tablet by mouth once daily 90 Tablet 1 4 Active glipiZIDE (GLUCOTROL) 10 MG Tablet Take 1 tablet by mouth once daily 90 Tablet 1 4 Active hydroCHLOROthi azide 25 MG Tablet Take 1 Tablet by mouth every morning. 90 Tablet 3 4 Active methylPREDNISo lone (MEDROL DOSPACK) 4 MG Tablet Therapy PackIndication s:Neck pain Take as directed on package 21 Tablet 4 Active Additional Information Patient not taking.Reported on 08/23/2024 naproxen (NAPROSYN) 500 MG Tablet Take 1 Tablet by mouth 2 times daily (with meals). 60 Tablet 4 Active Additional Information Patient not taking.Reported on 08/23/2024 losartan (COZAAR) 25 MG Tablet TAKE 1 TABLET BY MOUTH ONCE DAILY IN THE MORNING 90 Tablet 1 4 Active pioglitazone (ACTOS) 30 MG Tablet Take 1 tablet by mouth once daily 90 Tablet 1 4 Active atorvastatin (LIPITOR) 20 MG Tablet Take 1 Tablet by mouth every morning. 90 Tablet 3 4 Active triamcinolone (KENALOG) 0.1 % Cream Application Site: apply daily to left hand (Description and Location) 80 g 1 5 Active omeprazole (PriLOSEC) 20 MG CAPSULE DELAYED RELEASE Take 1 Capsule by mouth 2 times daily. 180 Capsule 5 Active DULoxetine (CYMBALTA) [address] Particles Take 1 Capsule by mouth daily. 90 Capsule 3 5 Active gabapentin (NEURONTIN) 300 MG Capsule Take 1 Capsule by mouth 3 times daily. 270 Capsule 5 Active Tirzepatide (Mounjaro) 5 MG/0.5ML Solution Auto-injector 5 mg by Subcutaneous route every 7 days. 2 mL 5 Active Additional Information Patient not taking.Reported on 08/23/2024 Tirzepatide (Mounjaro) 7.5 MG/0.5ML Solution Auto-injector 7.5 mg by Subcutaneous route every 7 days. 2 mL 5 Active Tirzepatide (Mounjaro) 2.5 MG/0.5ML Solution Auto-injector 2.5 mg by Subcutaneous route every 7 days. 2 mL 5 025 Discontin ued(Error ) Active Problems Problem Noted Date Diagnosed Date Neck pain 02/14/2024 Type 2 diabetes mellitus wit h microalbuminuria, without long-term current use of insulin 07/25/2023 Current mild episode of ralph r depressive disorder without prior episode 07/25/2023 Primary osteoarthritis of left knee 02/21/2019 Ulnar neuropathy at elbow of left upper extremit y 06/08/2017 Encounters Date Type Department Care Team Description 08/23/2024 Nurse Triage [facility] [address] [place] [address] Remberto Pandey MD Advice Only; Sore Throat 08/14/2024 Telephone [facility] #2 [facility] [place] [address] Remberto Pandey MD Medication Refill 08/07/2024 1:30 PM CDT Office Visit [facility] #2 [place] [address] Remberto Pandey MD Type 2 diabetes mellitus with microalbuminuria, without long-term current use of insulin (HCC) (Primary Dx); Current mild episode of major depressive disorder without prior episode (HCC); Primary hypertension; Pure hypercholesterolemia Discharge Disposition: Discharged to home or Selfcare 08/06/2024 Travel 07/31/2024 Travel 07/21/2024 Telephone [facility] #2 [facility] [place] [address] Remberto Pandey MD 07/20/2024 [facility]2 [facility] [place] [address] Remberto Pandey MD Medication Refill 06/21/2024 [facility] [place] [address] Remberto Pandey MD Medication Refill 06/19/2024 Telephone [facility] #2 [facility] [place] [address] Remberto Pandey MD Prior Authorization 06/14/2024 1:30 PM SECURITIES CONSULTANT Office Visit [facility] #2 [facility] [place] [address] Remberto Pandey MD Type 2 diabetes mellitus with microalbuminuria, without long-term current use of insulin (HCC) (Primary Dx); Current mild episode of major depressive disorder without prior episode (HCC); Primary hypertension Discharge Disposition: Discharged to home or Selfcare 06/13/2024 Results Follow-Up [facility] [address] [place] [address] Remberto Pandey MD 06/13/2024 Travel 06/12/2024 2:59 PM SECURITIES CONSULTANT - 06/12/2024 11:59 PM SECURITIES CONSULTANT Hospital Encounter [facility] Mammography 1 [facility] [place] [address] Remberto Pandey MD Discharge Disposition: Discharged to home or Selfcare 06/12/2024 Telephone [facility]2 [place] [address] Remberto Pandey MD Prior Authorization 06/12/2024 Travel 06/09/2024 Refill [facility]2 [place] [address] Remberto Pandey MD Medication Refill from Last 3 Months Immunizations Immunization Administration [...] mixed drinks ONCE OR TWICE A MONTH [facility] Utilities Answer Date Recorded In the past 12 months has e electric, gas, oil, or water company threatened to shut off services in your home? No 08/06/2024 Social Connection and Isolat ion Panel [NHANES] Answer Date Recorded In a typical week, how many times do you talk on the phone with family, friends, or neighbors? More than three times a week 08/06/2024 How often do you get togethe r with friends or relatives? Three times a week 08/06/2024 How often do you attend chur ch or shinto services? Never 08/06/2024 Do you belong to any clubs o r organizations such as congregation groups, unions, fraternal or athletic groups, or school groups? No 08/06/2024 How often do you attend meet ings of the clubs or organizations you belong to? Never 08/06/2024 Are you , , di vorced, , never , or living with a partner? 08/06/2024 AUDIT-C Answer Date Recorded Q1: How often do you have a drink containing alcohol? Monthly or less 08/06/2024 Q2: How many drinks containi ng alcohol do you have on a typical day when you are drinking? Patient does not drink Q3: How often do you have si x or more drinks on one occasion? Never 08/06/2024 Overall Financial Resource Strain (CARDIA) Answe r Date Recorded How hard is it for you to pa y for the very basics like food, housing, medical care, and heating? Not hard at all 08/06/2024 PHQ-2 Answer Date Recorded Total Score - Questions 1-9 0 01/28 [facility] - Occupational Stress Questionnaire Answer Date Recorded Do you feel stress - tense, restless, nervous, or anxious, or unable to sleep at night because your mind is troubled all the time - these days? Not at all 08/06/2024 Exercise Vital Sign Answer Date Recorde d On average, how many days pe r week do you engage in moderate to strenuous exercise (like a brisk walk)? 0 days 08/06/2024 On average, how many minutes do you engage in exercise at this level? 0 min 08/06/2024 Hunger Vital Sign Answer Date Recorded Within the past 12 months, y ou worried that your food would run out before you got the money to buy more. Never true 08/07/19 25 Within the past 12 months, t he food you bought just didn't last and you didn't have money to get more. Never true 08/06/2024 PRAPARE - Transportation Answer Date Re corded In the past 12 months, has l ack of transportation kept you from medical appointments or from getting medications? No 07/28 In the past 12 months, has l ack of transportation kept you from meetings, work, or from getting things needed for daily living? No 08/06/2024 Housing Stability Vital Sign Answer Ab e [...] place to sleep or slept in a fci (including now)? No 07/23/2023 Housing Stability Vital Sign Answer Ab e Recorded In the last 12 months, was t here a time when you were not able to pay the mortgage or rent on time? Yes 08/06/2024 Number of Times Moved in the Last Year Not on fi le 08/06/2024 At any time in the past 12 m [facility], were you homeless or living in a fci (including now)? No 08/06/2024 Education Answer Date Recorded What is the [...] Sign Reading Time Taken Comments Blood Pressure 128/70 08/07/2024 1:27 PM CDT Pulse 76 08/07/2024 1:27 PM CDT Temperature 36.1 C (97 F) 08/07/2024 1:27 PM CDT Respiratory Rate 16 08/07/2024 1:27 PM CDT Oxygen Saturation 97% 08/07/2024 1:27 PM CDT Inhaled Oxygen Concentration - - Weight 109.1 kg (240 lb 8 oz) 08/07/2024 1:27 PM CDT Height 162.6 cm (5' 4 ) 08/07/2024 1:27 PM CDT Body Mass Index 41.28 08/07/2024 1:27 PM CDT Plan of Treatment Upcoming Encounters Date Type Department Care Team (Late st Contact Info) Description 12/03/2024 11:40 AM CDT Lab [facility] #[address] [address] [facility] Lab/Ancillary 12/11/2024 2:30 PM CDT Office Visit [facility] [place] #2 [facility] [place] [address] Remberto Pandey MD #[address] [address] Health Maintenance Due Date Last Done Comments Cologuard 10/19/2011 Immunochemical Fecal Occult Blood 10/19/2011 Respiratory Syncytial Virus (RSV) Immunization (Adult) (1 - Risk 60-74 years 1-dose series) 2021 SARS-COV-2 Immunization (3 - 2023- season) 2024 11/16/2020, 10/19/2020 Diabetes: Eye Exam 06/07/2024 06/07/2023 Diabetes: Foot Exam 07/25/2024 07/25/2023 Diabetes: Nephropathy Screening 11/13/2024 11/14/2023, 07/21/2023, 03/21/2023, Additional history exists Pneumococcal Immunization (50+ years) (3 of 3 - PCV20 or PCV21) 11/27/2024 11/28/2019, 03/13/2018, 03/06/2018, Additional history exists Diabetes: Hemoglobin A1c 01/31/2025 03/ 025, 04/04/2024, 11/14/2023, Additional history exists Mammogram 06/12/2025 06/12/2024, 07/2022, 01/11/2022, Additional history exists Pap [...] Zoster Immunization Completed 10/07/2023, Influenza Immunization Completed 4, 03/08/2023, 04/09/2022, Additional history exists Hepatitis B Immunization Aged Out No longer eligible based on patient's age to complete this topic Meningococcal Immunization (ACWY) Aged Out No longer eligible based on patient's age to complete this topic Rotavirus Immunization Aged Out No lo nger eligible based on patient's age to complete this topic Medical Devices Implanted Type Area Cash Clerk Device Identifier Shelf Expiration Date Model / Serial / Lot Cement Bone Orthoset 1 40gm - [id number] Implanted:Qty: 1 on 02/21/2019 by Allan Rivas MD at [facility] IMPLANT Left: Knee [employer] 08/27/2021 [id number] / [id number] / [id number] Cement Bone Orthoset 1 40gm - [id number] Implanted:Qty: 1 on 02/21/2019 by Allan Rivas MD at [facility] IMPLANT Left: Knee [employer] 08/27/2021 [id number] / [id number] / [id number] Insert Evolution Mp Tib Keeled Nonpor Size 4 Standard Left - [id number] Implanted:Qty: 1 on 02/21/2019 by Allan Rivas MD at [facility] IMPLANT Left: Knee [employer] 10/25/2026 [id number] / [id number] / [id number] Component Patellar Low Dome 7mm 25mm Recessed Advance All Poly - [id number] Implanted:Qty: 1 on 02/21/2019 by Allan Rivas MD at [facility] IMPLANT Left: Knee [employer] 03/30/2026 [id number] / [id number] / [id number] Insert Evolution Mp Fem Cs/Cr Porous - [id number] Implanted:Qty: 1 on 02/21/2019 by Allan Rivas MD at [facility] IMPLANT Left: Knee [employer] 05/31/2026 [id number] / [id number] / [id number] [employer] 1-Piece Iol Implanted:Qty: 1 on 11/21/2023 by Tammy Barboza MD PhD at [facility] IMPLANT Left: Eye [employer] 11/20/2025 [id number] / [id number] / [id number] Evolution Mp Cs 4+ Left Cs 10mm Thickness Implanted:Qty: 1 on 02/21/2019 by Allan Rivas MD at [facility] Left: Knee [employer] 09/23/2025 [id number] / [id number] / [id number] Technis 1-Piece Iol With Simplicity Delivery System Implanted:Qty: 1 on 12/19/2023 by Tammy Barboza MD PhD at [facility] Right: Eye 03/20/2026 [id number] / [id number] / [id number] Procedures Procedure Name Priority Date/Time Associated Diagnosis Comments LIPID PANEL Routine 07/31/2024 11:33 AM SECURITIES CONSULTANT Type 2 diabetes mellitus with microalbuminuria, without long-term current use of insulin (HCC) Pure hypercholesterolemia HEMOGLOBIN A1C W/ ESTIMATED GLUCOSE Routine 07/31/2024 11:33 AM SECURITIES CONSULTANT Type 2 diabetes mellitus with microalbuminuria, without long-term current use of insulin (HCC) Pure hypercholesterolemia CHARLA SCREENING BILATERAL DIGITAL W CAD W ELSA Routine 06/12/2024 3:18 PM SECURITIES CONSULTANT Visit for screening mammogram CMP (COMPREHENSIVE METABOLIC PANEL) Routine 11/14/2023 1:26 PM CDT Type 2 diabetes mellitus with microalbuminuria, without long-term current use of insulin (HCC) Current mild episode of major depressive disorder without prior episode (HCC) Pure hypercholesterolemia HUMAN PAPILLOMA VIRUS (HPV) Routine 09/05/2023 1:08 PM CDT Encounter for gynecological examination with abnormal finding Encounter for screening for human papillomavirus (HPV) PATHOLOGY CYTOLOGY PATROL DRIVER Routine 09/05/2023 1:08 PM CDT Encounter for gynecological examination with abnormal finding HEPATITIS PANEL ACUTE (AHP) Routine 08/18/2018 9:35 AM CDT Abnormal results of liver function studies Elevated liver enzymes from Last 3 Months or Most Recently Relevant to Health Maintenance Results * HEMOGLOBIN A1C W/ ESTIMATED GLUCOSE (07/31/2024 11:33 AM SECURITIES CONSULTANT) HGB-A1C 5.4 4.0 - 6.0 % 07/31/2024 12:41 PM SECURITIES CONSULTANT [facility] Est Average Glucose 108.3 mg/dL 07/31/2024 12:41 PM SECURITIES CONSULTANT [facility] Blood Venipuncture / Unknown 07/31/2024 11:33 AM SECURITIES CONSULTANT 07/31/2024 12:20 PM SECURITIES CONSULTANT Narrative [facility] - 07/31/2024 12:41 PM SECURITIES CONSULTANT HEMOGLOBIN A1C: DIABETIC PATIENTS: WELL-CONTROLLED: 6.2 - 7.0 INTERMEDIATE WELL-CONTROLLED: 7.0 - 9.0 POORLY-CONTROLLED: >9.0 Specimens containing greater than 5% of Hemoglobin F may result in lower than expected % HbA1C results. us Remberto Pandey MD CHEMISTRY ORDERABLES Final Re sult [facility] #[address] [place] [address] * (ABNORMAL) LIPID PANEL (07/31/2024 11:33 AM SECURITIES CONSULTANT) CHOLESTEROL 164 <200 mg/dL 07/31/2024 1:15 PM SECURITIES CONSULTANT [facility] TRIGLYCERIDES 287(H) <150 mg/dL 07/31/2024 1:15 PM SECURITIES CONSULTANT [facility] HDL CHOLESTEROL 41 >40 mg/dL 1:15 PM SECURITIES CONSULTANT [facility] LDL 66 <130 mg/dL 07/31/2024 1:15 PM SECURITIES CONSULTANT [facility] VLDL 57(H) 10 - 50 mg/dL 07/31/2024 1:15 PM SECURITIES CONSULTANT [facility] CHOL/HDL RATIO 4.0 0.0 - 4.4 07/31/2024 1:15 PM SECURITIES CONSULTANT [facility] NON-HDL CHOLESTEROL 123 <130 mg/dL 07/31/2024 1:15 PM SECURITIES CONSULTANT [facility] IS THE PATIENT REQUIRED TO BE FASTING? No 07/31/2024 1:15 PM SECURITIES CONSULTANT [facility] Blood Venipuncture / Unknown 07/31/2024 11:33 AM SECURITIES CONSULTANT 07/31/2024 12:20 PM SECURITIES CONSULTANT Remberto Pandey MD CHEMISTRY ORDERABLES Final Re sult [facility] [address] [place] [address] * CHARLA SCREENING BILATERAL DIGITAL W CAD W ELSA (06/12/2024 3:18 PM SECURITIES CONSULTANT) Anatomical Region Laterality Modality breast Bilateral Mammography 06/12/2024 3:24 PM SECURITIES CONSULTANT Narrative 06/13/2024 4:06 PM SECURITIES CONSULTANT - CHARLA SCREENING BILATERAL DIGITAL W CAD [...] to exams dated: 01/11/2022, 03/01/2023, and 01/09/2021 [facility]. BREAST TISSUE:There are scattered areas of fibroglandular [...] exam. Electronically signed by: Shanel bustillo/galileo:06/12/2024 17:03:25 Manager Cable(s): RT Siddhartha(R)(M), [facility] letter sent: Normal Exam Reading location: [place] [...] to exams dated: 01/11/2022, 03/01/2023, and 01/09/2021 [facility]. BREAST TISSUE:There are scattered areas of fibroglandular [...] exam. Electronically signed by: Shanel bustillo/galileo:06/12/2024 17:03:25 Manager Cable(s): Tatum Chaidez RT(R)(M), [facility] letter sent: Normal Exam Reading location: [place] Mammogram BI-RADS: Category 1: Negative Remberto Pandey MD IMG MAMMO ORDERABLES Final Re sult * (ABNORMAL) CMP (COMPREHENSIVE METABOLIC PANEL) (11/14/2023 1:26 PM CDT) SODIUM 142 136 - 145 mmol/L 11/14/2023 4:20 PM CDT [facility] POTASSIUM 3.4(L) 3.5 - 5.1 mmol/L 11/14/2023 4:20 PM CDT [facility] CHLORIDE 106 98 - 107 mmol/L 11/14/2023 4:20 PM CDT [facility] CO2, VENOUS 27 22 - 30 mmol/L 11/14/2023 4:20 PM CDT [facility] ANION GAP 12.4 <18.0 mmol/L 11/14/2023 4:20 PM CDT [facility] GLUCOSE 119(H) 70 - 99 mg/dL 11/14/2023 4:20 PM CDT [facility] BUN 9(L) 10 - 20 mg/dL 11/14/2023 4:20 PM CDT [facility] CREATININE, BLOOD 0.65 0.60 - 1.00 mg/dL 11/14/2023 4:20 PM CDT [facility] BUN/CREATININE RATIO 14 12 - 20 ratio 11/14/2023 4:20 PM CDT [facility] TOTAL PROTEIN 7.1 6.3 - 8.2 g/dL 11/14/2023 4:20 PM CDT [facility] ALBUMIN 4.0 3.5 - 5.0 g/dL 11/14/2023 4:20 PM CDT [facility] A/G RATIO 1.3 1.0 - 2.2 11/14/2023 4:20 PM CDT [facility] CALCIUM 9.3 8.7 - 10.5 mg/dL 11/14/2023 4:20 PM CDT [facility] T BILI 0.6 0.2 - 1.2 mg/dL 11/14/2023 4:20 PM CDT [facility] SGOT (AST) 14 5 - 34 U/L 11/14/2023 4:20 PM CDT [facility] SGPT (ALT) 19 0 - 55 U/L 11/14/2023 4:20 PM CDT [facility] ALKALINE PHOSPHATASE 88 40 - 150 U/L 11/14/2023 4:20 PM CDT [facility] IS THE PATIENT REQUIRED TO BE FASTING? No 11/14/2023 4:20 PM CDT [facility] GFR, ESTIMATED >60 >=60 11/14/2023 4:20 PM CDT [facility] Comment: Creatinine Clearance is the preferred criteria for selecting drug dose adjustments in renally impaired patients. The GFR is provided as additional pertinent clinical information. GFR is reported in mL/min/1.73 sq m. Calculation based on the Chronic Kidney Disease Epidemiology Collaboration (CKD- EPI) equation refit without adjustment for race. GFR, EST. >60 >=60 024 4:20 PM CDT [facility] GFR, EST. NONAFRICAN >60 >=60 11/14/2023 4:20 PM CDT [facility] Blood Venipuncture / Unknown 11/14/2023 1:26 PM CDT 11/14/2023 1:26 PM CDT us Remberto Pandey MD CHEMISTRY ORDERABLES Final Re sult [facility] [place] [address] * PATHOLOGY CYTOLOGY PATROL DRIVER (09/05/2023 1:08 PM CDT) SPECIMEN ADEQUACY Satisfactory for evaluation. Endocervical/transf ormation zone component is present. 09/09/2023 2:58 PM CDT [facility] DESCRIPTIVE DIAGNOSIS NEGATIVE FOR INTRAEPITHELIAL LESIONS OR MALIGNANCY. 09/09/2023 2:58 PM CDT [facility] R FINDINGS Atrophic hormonal pattern with abundant inflammatory cells. 09/09/2023 2:58 PM CDT [facility] Automated Examination Analysis of this sample has been assisted by an automated imaging and review system ([employer] System, [employer], [place], [place]). This case is further evaluated and finalized by a silver miner and/or pathologist. 09/09/2023 2:58 PM CDT [facility] Disclaimer The PAP smear is a screening [...] unless clinically indicated. 09/09/2023 2:58 PM CDT [facility] Case Report Gynecologic Cytology Report Case: [id number] Authorizing Provider: Ida Hair APRN, Collected: 09/05/2023 01:08 PM COMMUNITY SERVICE DIRECTOR Ordering Location: [facility] Received: 09/05/2023 01:08 PM Medicine - [place] First Screen: Devora Giraldo Specimen: TP Screen, Cervix/Endocervix/V aginal 09/09/2023 2:58 PM CDT [facility] Other (Cervix/Endocerv ix/Vaginal) Non-Phlebotomy Collection / Unknown 09/05/2023 1:08 PM CDT 09/05/2023 1:08 PM CDT Ida Hair APRN, CNP PATHOLOGY/CYTOLOGY O RDERABLES Final Result [facility] [address] [place] [address], [place] * HUMAN PAPILLOMA VIRUS (HPV) (09/05/2023 1:08 PM CDT) HPV TYPE 16 NEGATIVE NEGATIVE 09/06/2023 2:37 PM CDT [facility] Comment: A negative high-risk HPV result does [...] 18 NEGATIVE NEGATIVE 09/06/2023 2:37 PM CDT [facility] Comment: A negative high-risk HPV result does [...] PCR NEGATIVE NEGATIVE 09/06/2023 2:37 PM CDT [facility] Comment: The following Other High Risk types [...] OR DIAGNOSTIC SCREENING 09/06/2023 2:37 PM CDT [facility] Other Non-Phlebotomy Collection / Unknown 09/05/2023 1:08 PM CDT 09/05/2023 1:08 PM CDT Narrative [facility] - 09/06/2023 2:37 PM CDT Performed by Real-Time Polymerase Chain Reaction (PCR) on the [employer]00. This assay has been validated for use with post-aliquot samples from the [employer]5000 processor. us Ida Hair APRN, CNP LAB SEND OUTS Darling l Result [facility] [address] [place] [address], [facility] [place] [address] * HEPATITIS PANEL ACUTE (AHP) (08/18/2018 9:35 AM CDT) HEPATITIS A IGM ANTIBODY NON DETECTED NON DETECTED 08/18/2018 11:08 PM CDT [facility] Comment: IGM Antibodies to HAV not detected. Does not exclude early acute or recovered HAV infection. HEP B CORE AB (IGM) NON DETECTED NON DETECTED 08/18/2018 11:08 PM CDT [facility] Comment: IGM anti-HBC not detected. Does not exclude the possibility of exposure to or infection with HBV. HEPATITIS B SURFACE ANTIGEN NON DETECTED NON DETECTED 08/18/2018 11:08 PM CDT [facility] Comment: A nonreactive test result does not [...] 0.08 <1 S/CO 08/18/2018 11:08 PM CDT [facility] Comment: Signal/Cutoff ratio < 0.79 is Nondetected Signal/Cutoff ratio 0.80-0.99 is Grayzone Signal/Cutoff ratio > 0.99 is Detected Supplemental assays are recommended if signal/cutoff ratio is >/=1.00. Signal/cutoff ratio result >/= 5.00 is 97% predictive of positivity for recombinant immunoblot assay (RIBA) and will be reported to the [place] Department of Public Health as required. Blood specimen (specimen) Venipuncture / Unknown 08/18/2018 9:35 AM CDT 08/18/2018 11:36 AM CDT us Samir Patino MD HEMATOLOGY ORDERABLES F inal Result [facility] [address] [place] [address], from Last 3 Months or Most Recently Relevant to Health Maintenance Insurance MEDICARE C [employer]ET[employer] Advance Directives * Full Code (Latest Code Status on File) Date Activated Date Inactivated Comments 03/01/2019 8:11 AM 06/09/2023 6:52 AM * Full Code Date Activated Date Inactivated Comments 03/12/2015 6:29 AM 06/08/2017 6:10 AM Care Teams Weapons Designer Relationship Specialty Start Date End Date Remberto Pandey MD #2 [facility] [address] [place] [address] PCP - General Family Medicine 07/13/22 John Aquino MD #2 [facility] [address] [place] [address] Consulting Physician Colon and Rectal Surgery 05/06/23
--- OUTSIDE RECORDS SUMMARY | 2024-08-23 14:39 | XMS_ITS | Clinical Summary ---
Author Organization [facility] Address [address] [place] [address] Care Team Providers Care Assembly Line Worker Name Role Phone Gilbert Kennedy APRN-TRUCK FARMER Primary Care Provider Source Comments [facility],non-owned Affiliates and Associated Physician Practices is amultiple site organization consisting of ambulatory clinics and hospital sitesin [place], [place], [place] and [place]. This disclosure is being madepursuant to the Care Everywhere program and may not contain all information available regarding this patient. Last updated 18.[facility] Social History Tobacco Use Types Packs/Day [...] FLEX SIG - COLON CA SCREENING 1961 MAMMOGRAM 1961 MEDICARE AWV 12 MONTHS 1961 PAP SMEAR 1961 HIV SCREENING 1976 DTAP/TDAP/TD VACCINES (1 - Tdap) 1980 PNEUMOCOCCAL VACCINE 50+ (1 of 1 - PCV) 10/19/2011 ZOSTER VACCINE (1 of 2) 10/19/2011 SCREENING FOR DIABETES 08/30/2018 LIPID TESTING 08/19/2023 08/18/2018 COVID-19 VACCINE (1 - 2023-2 5 season) 2024 INFLUENZA VACCINE (#1) 2024 DEPRESSION SCREENING 05/30/2024 MEDICARE AWV CALENDAR YEAR 2024 Respiratory Syncytial Virus (RSV) Vaccine Pt: or over 60 yrs (1 - 1-dose 75+ series) 2036 HEPATITIS C SCREENING Completed 08/18/2018 , 08/18/2018, 08/18/2018 HEPATITIS B VACCINE Aged Out No longe r eligible based on patient's age to complete this topic HIB VACCINE Aged Out No longer eligi ble based on patient's age to complete this topic HPV VACCINE Aged Out No longer eligi ble based on patient's age to complete this topic MENINGOCOCCAL (Group B) VACCINE SHARED DECISION-MAKING Aged Out No longer eligible based on patient's age to complete this topic MENINGOCOCCAL GROUPS A/C/Y/W VACCINE Aged Out No longer eligible b ased on patient's age to complete this topic PNEUMOCOCCAL VACCINE Aged Out No long er eligible based on patient's age to complete this topic Care Teams Assembly Line Worker Relationship Specialty Start Date End Date Gilbert Kennedy, LOIN TRIMMER-TRUCK FARMER [address] [place] [address] PCP - General 08/30/18
--- OUTSIDE RECORDS SUMMARY | 2024-08-23 14:39 | XMS_ITS | Encounter Summary ---
Author Organization [facility] Address [address] [place] [address] Phone Care Team Providers Care Improvement Auditor Name Role Phone Remberto Pandey MD Primary Care Provider [phone] John Aquino MD Unavailable Reason for Visit * Reason Comments Medication Refill Encounter Details Date Type Department Care Team (Late st Contact Info) Description 10/21/2023 Refill [facility] - Family Medicine [facility] #2 [place] [address] Remberto Pandey MD #[address] [address] Medication Refill Social History Tobacco Use Types Packs/Day Years Used Date Smoking Tobacco: Never Smokeless Tobacco: Never Alcohol Use Standard Drinks/Week Comments Yes 1 (1 standard drink = 0.6 oz pure alcohol) ocassionally mixed drinks ONCE OR TWICE A MONTH [facility] Utilities Answer Date Recorded In the past 12 months has [employer], gas, oil, or water [employer] threatened to shut off services in your home? No 07/23/2023 Social Connection and Isolation Panel [NHANES] A nswer Date Recorded In a typical week, how many times do you talk on the phone with family, friends, or neighbors? Patient declined 07/23/2023 How often do you get togethe r with friends or relatives? Patient declined 07/23/2023 How often do you attend congregational or islam serv ices? Patient declined 07/23/2023 Do you belong to any clubs o r organizations such as congregational groups, unions, fraternal or athletic groups, or [...] Total Score - Questions 1-9 0 07/01 [facility] Occupat ional [facility] - Occupational Stress Questionnaire Answer Date Recorded [...] 09/05/23 Office Visit Ida Hair APRN, LEOBARDO [facility] 08/31/23 Office Visit Remberto Pandey MD [facility] 07/25/23 Office Visit Remberto Pandey MD [facility] [place] Showing recent visits within past 182 days and meeting all other requirements Future Appointments Date Type Provider Dept 11/21/23 Appointment Remberto Pandey MD [facility] [place] Showing future appointments within next 90 [...] Info) Description 12/03/2024 11:40 AM CDT Lab [facility] #[address] [address] [place] Rm Lab/Ancillary 12/11/2024 2:30 PM CDT [facility] - [place] [address] [place] [address] Remberto Pandey MD #2 [facility] [address] [place] [address] documented as of this encounter Visit Diagnoses Not on filedocumented in this encounter Additional Health Concerns Assessment Noted Time PHQ-9 Depression Total Score: 0 07/25/19 2:50 PM 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
--- OUTSIDE RECORDS SUMMARY | 2024-08-23 14:39 | XMS_ITS | Encounter Summary ---
Author Organization [facility] Address [address] [place] [address] Phone Care Team Providers Care Cardiac Nurse Practitioner Name Role Phone Remberto Pandey MD Primary Care Provider [phone] John Aquino MD Unavailable Reason for Visit * Reason Onset Date Comments Advice Only 08/23/2024 Sore Throat 08/23/2024 Encounter Details Date Type Department Care Team (Late st Contact Info) Description 08/23/2024 Nurse Triage [facility] [address] [place] [address] Remberto Pandey MD #[address] [address] Advice Only; Sore Throat Social History Tobacco Use Types Packs/Day Years Used Date Smoking Tobacco: Never Smokeless Tobacco: Never Alcohol Use Standard Drinks/Week Comments Yes 1 (1 standard drink = 0.6 oz pure alcohol) ocassionally mixed drinks ONCE OR TWICE A MONTH [facility] Utilities Answer Date Recorded In the [...] any clubs o r organizations such as restorationism groups, unions, fraternal or athletic groups, or [...] Total Score - Questions 1-9 0 01/28 [facility] Occupat ional Health - Occupational Stress [...] place to sleep or slept in a long term (including now)? No 07/23/2023 Housing Stability Vital Sign Answer Ab e Recorded In the last 12 months, was t here a time when you were not able to pay the mortgage or rent on time? Yes 08/06/2024 Number of Times Moved in the Last Year Not on fi le 08/06/2024 At any time in the past 12 m [facility], were you homeless or living in a long term (including now)? No 08/06/2024 Education Answer Date [...] encounter Miscellaneous Notes * Telephone Encounter - Haley Handy RN - 08/23/2024 11:27 AM CDT SITUATION: Sore throat, ear pain, cough BACKGROUND: [place]wn contacting PCP office. Patient states she developed a sore throat and cough 4 days ago. She complains of left sided ear pain. Pain kept patient up through the night. Patient is requesting an appointment today. ASSESSMENT: Symptom Description / Location: Sore throat Left ear pain Patient unable to sleep at night Dry cough Congestion Swollen lymph nodes on both sides of neck Denies any difficulty breathing, denies fever, denies any redness or swelling behind to ear, denieswheezing. Pain: 8/10 Fever: Denies fever. Treatment / Response: Cough and cold medicine with no relief. RECOMMENDATION: Caller agreeable to disposition: see in office today. Care advice provided per triage guideline. Caller verbalized understanding. Due to office unavailability within disposition, advised for patient to be seen at prompt care or urgent care. Caller agreeable to prompt care/urgent care. - See care advice and disposition for Guideline. First positive answer recorded, all responses to prior questions were negative. If symptoms increase, change or if new symptoms develop, call your health care provider or call back. Recommendations were based on caller information and is not a diagnosis. Verified and reviewed all triage information with caller. Reason for Disposition SEVERE coughing spells (e.g., whooping sound after coughing, vomiting after coughing) SEVERE earache pain (e.g., excruciating) Protocols used: Cough-A-OH, Cecfexo-B-MY * Telephone Encounter - Flora Chung - 08/23/2024 11:26 AM CDT Symptoms: Earache, Sore Throat Outcome: Transfer to chemical processor queue Reason: Caller denied all higher acuity questions The caller accepted this outcome. Caller Denied: * Struggling for each breath (severe trouble breathing) * Can't swallow saliva (drooling) documented in this encounter Plan of Treatment Upcoming Encounters Date Type Department Care Team (Late st Contact Info) Description 12/03/2024 11:40 AM CDT Lab [facility] [address] [address] [place] Rm Lab/Ancillary 12/11/2024 2:30 PM CDT Office Visit [facility] - [place] #[address] [place] [address] Remberto Pandey MD #2 [facility] [address] [place] [address] documented as of this encounter Visit Diagnoses Not on filedocumented in this encounter Additional Health Concerns Assessment Noted Time PHQ-9 Depression Total Score: 0 02/14/20 24 10:17 AM CDT documented as of this encounter Care Teams Cardiac Nurse Practitioner Relationship Specialty Start Date End Date Remberto Pandey MD #[address] [place] [address] [address] PCP - General Family Medicine 07/13/22 John Aquino MD #2 [place] [facility] [address] [place] [address] Consulting Physician Colon and Rectal Surgery 05/06/23 documented as of this encounter
--- OUTSIDE RECORDS SUMMARY | 2024-08-23 14:39 | XMS_ITS ---
Care Plan - [facility] Created on: August 23, 2024 GABRIEL RAYMOND : 1960 Sex: Female Author Organization [facility] Address [address] [place] [address] Phone Care Team Providers Care Appliance Service Supervisor Name Role Phone Unavailable Unavailable Unavailable
--- OUTSIDE RECORDS SUMMARY | 2024-08-23 14:39 | XMS_ITS | Clinical Summary ---
Author Organization [facility] Address [address] [place] [address] Phone Care Team Providers Care Moulder Operator Name Role Phone Unavailable Unavailable Unavailable Reason [...]
--- OUTSIDE RECORDS SUMMARY | 2024-08-23 14:39 | XMS_ITS | Encounter Summary ---
Author Organization [facility] Address [address] [place] [address] Phone Care Team Providers Care Automatic Splicing Machine Operator Name Role Phone Remberto Pandey MD Primary Care Provider [phone] John Aquino MD Unavailable Reason for Visit * Reason Comments Medication Refill Encounter Details Date Type Department Care Team (Late st Contact Info) Description 11/15/2022 Refill [facility] #2 [place] [address] Cristian Gibbons MD #2 [place] [address] Medication Refill Social History Tobacco [...] Recorded In the last 10 days, have mami u been in contact with someone who was confirmed or suspected to have Coronavirus/COVID-19? No / Unsure 10/19/2022 4:35 PM CDT documented as of this encounter Plan of Treatment Upcoming Encounters Date Type Department Care Team (Late st Contact Info) Description 12/03/2024 11:40 AM CDT Lab [facility] #[address] [address] [facility] Lab/Ancillary 12/11/2024 2:30 PM CDT Office Visit [facility] #2 [place] [address] Remberto Pandey MD #2 [facility] [address] [place] [address] documented as of this encounter Visit Diagnoses Diagnosis OAB (overactive bladder) Hypertonicity of bladder documented in this encounter Additional Health Concerns Assessment Noted Time PHQ-9 Depression Total Score: 0 07/13/19 23 1:00 PM MACHINE SIZER documented as of this encounter Care Teams Automatic Splicing Machine Operator Relationship Specialty Start Date End Date Remberto Pandey MD #[address] [address] PCP - General Family Medicine 07/13/22 John Aquino MD #[address] [address] Consulting Physician Colon and Rectal Surgery 05/06/23 documented as of this encounter
--- OUTSIDE RECORDS SUMMARY | 2024-08-23 14:39 | XMS_ITS | Encounter Summary ---
Author Organization [facility] Address [address] [place] [address] Phone Care Team Providers Care Head Of Drama Name Role Phone Remberto Pandey MD Primary Care Provider [phone] John Aquino MD Unavailable Reason for Visit * Reason Comments Medication Refill Encounter Details Date Type Department Care Team (Late st Contact Info) Description 09/28/2023 Refill [facility] - Family Medicine [facility] #2 [place] [address] Remberto Pandey MD #[address] [address] Medication Refill Social History Tobacco Use Types Packs/Day Years Used Date Smoking Tobacco: Never Smokeless Tobacco: Never Alcohol Use Standard Drinks/Week Comments Yes 1 (1 standard drink = 0.6 oz pure alcohol) ocassionally mixed drinks ONCE OR TWICE A MONTH [facility] Utilities Answer Date Recorded In the past 12 months has [employer], gas, oil, or water [employer] threatened to shut off services in your home? No 07/23/2023 Social Connection and Isolation Panel [NHANES] A nswer Date Recorded In a typical week, how many times do you talk on the phone with family, friends, or neighbors? Patient declined 07/23/2023 How often do you get togethe r with friends or relatives? Patient declined 07/23/2023 How often do you attend yazidi or yarsanism serv ices? Patient declined 07/23/2023 Do you belong to any clubs o r organizations such as yazidi groups, unions, fraternal or athletic groups, or [...] Total Score - Questions 1-9 0 07/01 [facility] of Occupat ional [facility] - Occupational Stress Questionnaire Answer Date Recorded [...] place to sleep or slept in a halfway (including now)? No 07/23/2023 Education Answer Date [...] 09/05/23 Office Visit Ida Hair APRN, LEOBARDO [facility] 08/31/23 Office Visit Remberto Pandey MD [facility] 07/25/23 Office Visit Remberto Pandey MD [facility] Showing recent visits within past 182 days and meeting all other requirements Future Appointments Date Type Provider Dept 11/21/23 Appointment [facility] [place] Showing future appointments within next 90 [...] Info) Description 12/03/2024 11:40 AM CDT Lab [facility] #[address] [address] [place] Rm Lab/Ancillary 12/11/2024 2:30 PM CDT Office Visit [facility] - [place] [facility] [place] [address] Remberto Pandey MD #[address] [place] [address] documented as of this encounter Visit Diagnoses Not on filedocumented in this encounter Additional Health Concerns Assessment Noted Time PHQ-9 Depression Total Score: 0 07/25/19 2:50 PM POWER CRANE OPERATOR documented as of this encounter Care Teams Head Of Drama Relationship Specialty Start Date End Date Remberto Pandey MD #2 [facility] [address] [place] [address] PCP - General Family Medicine 07/13/22 John Aquino MD #2 [facility] [address] [place] [address] Consulting Physician Colon and Rectal Surgery 05/06/23 documented as of this encounter
--- OUTSIDE RECORDS SUMMARY | 2024-08-23 14:39 | XMS_ITS ---
Author Organization [facility] Address [address] [place] [address] Phone Care Team Providers Care Medical Coding Specialist Name Role Phone Unavailable Unavailable Unavailable Plan of Treatment No Plan of Treatment Recorded Assessments Includes: Assessments for all patient encounters No Assessments Recorded Medical Equipment - Implanted Devices Includes: Current and historical Devices No Medical Equipment Recorded Medications Administered Includes: Administered Medications in patient's chart No Administered Medications Recorded Results Includes: Results from 08/24/2023 through 08/23/2024 No Results Recorded For Specified Dates History [...]
--- OUTSIDE RECORDS SUMMARY | 2024-08-23 14:39 | XMS_ITS | Encounter Summary ---
Author Organization [facility] Address [address] [place] [address] Phone Care Team Providers Care Planning Director Name Role Phone Remberto Pandey MD Primary Care Provider [phone] John Aquino MD Unavailable Reason for Visit * Reason Onset Date Comments Medication Management 06/06/2023 Encounter Details Date Type Department Care Team (Late st Contact Info) Description 06/06/2023 Telephone [facility] #2 [place] [address] Remberto Pandey MD #[address] [address] Medication Management Social History Tobacco Use Types [...] Bell Stone RMA - 06/07/2023 9:05 AM TECHNICAL SERVICE ENGINEER Pt notified NICAL SERVICE ENGINEER * Telephone Encounter - Remberto Pandey MD - 06/06/2023 4:11 PM CST Please call. Will call in. No changes with other dm meds right now NICAL SERVICE ENGINEER * Telephone Encounter - Yari Spears - 06/06/2023 3:01 PM CST Ozempic was called in several months ago, but patient's copay was $300.00 so she did not molded goods spot picker. She just got brand new insurance and would like it called in again hoping it will be cheaper this time. Also, if she gets Ozempic will she need to adjust any of her other diabetic medications. NICAL SERVICE ENGINEER documented in this encounter Plan of Treatment Upcoming Encounters Date Type Department Care Team (Late st Contact Info) Description 12/03/2024 11:40 AM CDT Lab [facility] [place] [address] [address] [place] Rm Lab/Ancillary 12/11/2024 2:30 PM CDT Office Visit [facility] - [place] #[address] [place] [address] Rmeberto Pandey MD #[address] [place] [facility] [address] [place] [address] documented as of this encounter Visit Diagnoses Not on filedocumented in this encounter Additional Health Concerns Assessment Noted Time PHQ-9 Depression Total Score: 0 03/08/20 2:31 PM CDT documented as of this encounter Care Teams Planning Director Relationship Specialty Start Date End Date Remberto Pandey MD #[address] [facility] [address] [place] [address] PCP - General Family Medicine 07/13/22 John Aquino MD #[address] [facility] [address] [place] [address] Consulting Physician Colon and Rectal Surgery 05/06/23 documented as of this encounter
--- OUTSIDE RECORDS SUMMARY | 2024-08-23 14:39 | XMS_ITS | Encounter Summary ---
Author Organization [facility] Address [address] [place] [address] Phone Care Team Providers Care Grinder Set Up Operator Centerless Name Role Phone Remberto Pandey MD Primary Care Provider [phone] John Aquino MD Unavailable Reason for Visit * Reason Comments Medication Refill Encounter Details Date Type Department Care Team (Late st Contact Info) Description 07/07/2023 Refill [facility] #2 [place] [address] Remberto Pandey MD #[address] [address] Medication Refill Social History Tobacco Use Types [...] Reuptake Inhibitors for at least 6 months OR PETROLEUM OPERATOR documented in this encounter Plan of Treatment Upcoming Encounters Date Type Department Care Team (Late st Contact Info) Description 12/03/2024 11:40 AM CDT Lab [facility] #[address] [address] [facility] [place] Lab/Ancillary 12/11/2024 2:30 PM CDT Office Visit [facility] - [place] #[address] [place] [address] Remberto Pandey MD #[address] [address] documented as of this encounter Visit Diagnoses Not on filedocumented in this encounter Additional Health Concerns Assessment Noted Time PHQ-9 Depression Total Score: 0 03/08/20 23 2:31 PM CDT documented as of this encounter Care Teams Grinder Set Up Operator Centerless Relationship Specialty Start Date End Date Remberto Pandey MD #[address] [address] PCP - General Family Medicine 07/13/22 John Aquino MD #[address] [place] [address] Consulting Physician Colon and Rectal Surgery 05/06/23 documented as of this encounter
--- OUTSIDE RECORDS SUMMARY | 2024-08-23 14:39 | XMS_ITS | Encounter Summary ---
Author Organization [facility] Address [address] [place] [address] Phone Care Team Providers Care Electronics Technology Instructor Name Role Phone Remberto Pandey MD Primary Care Provider [phone] John Aquino MD Unavailable Reason for Visit * Reason Comments Medication Refill Encounter Details Date Type Department Care Team (Late st Contact Info) Description 08/14/2024 Telephone [facility] - Family Medicine [facility] [address] [place] [address] Remberto Pandey MD [address] [id number] Medication Refill Social History Tobacco Use Types Packs/Day Years Used Date Smoking Tobacco: Never Smokeless Tobacco: Never Alcohol Use Standard Drinks/Week Comments Yes 1 (1 standard drink = 0.6 oz pure alcohol) ocassionally mixed drinks ONCE OR TWICE A MONTH [facility] Utilities Answer Date Recorded In the past 12 months has [employer] gas, oil, or water [employer] threatened to shut off services in your [...] you attend chur ch or worship services? Never 08/06/2024 Do you belong to any clubs o r organizations such as confucianist groups, unions, fraternal or athletic groups, or [...] Total Score - Questions 1-9 0 01/28 [facility] - Occupational [...] place to sleep or slept in a retirement (including now)? No 07/23/2023 Housing Stability Vital Sign Answer Ab e Recorded In the last 12 months, was t here a time when you were not able to pay the mortgage or rent on time? Yes 08/06/2024 Number of Times Moved in the Last Year Not on fi le 08/06/2024 At any time in the past [facility], were you homeless or living in a retirement (including now)? No 08/06/2024 Education Answer Date [...] encounter Miscellaneous Notes * Telephone Encounter - Remberto Pandey MD - 08/14/2024 1:55 PM CDT Please call. We will increase dose to 7.5 this month. Following month will go to 10 mg * Telephone Encounter - Olive Merino RN - 08/14/2024 1:50 PM CDT New Rx 07/21/24 - continue this dose? Medication failed the protocol, provider to review and approve the medication order if appropriate. Requested Prescriptions Pending Prescriptions Disp Refills Tirzepatide (Mounjaro) 5 MG/0.5ML Solution Auto-injector [Pharmacy Med Name: Mounjaro 5 MG/0.5ML Subcutaneous Solution Pen-injector] 4 mL 0 GLP-1 Agonists Protocol Failed - 08/14/2024 1:50 PM Failed - GFR on record in past 6 months GFR, EST. NONAFRICAN Date Value Ref Range Status 11/14/2023 >60 >=60 Final Passed - Lipid panel result on file in past 12 months LDL Date Value Ref Range Status 07/31/2024 66 <130 mg/dL Final HDL CHOLESTEROL Date Value Ref Range Status 07/31/2024 41 >40 mg/dL Final CHOLESTEROL Date Value Ref Range Status 07/31/2024 164 <200 mg/dL Final TRIGLYCERIDES Date Value Ref Range Status 07/31/2024 287 (H) <150 mg/dL Final VLDL Date Value Ref Range Status 07/31/2024 57 (H) 10 - 50 mg/dL Final CHOL/HDL RATIO Date Value Ref Range Status 07/31/2024 4.0 0.0 - 4.4 Final NON-HDL CHOLESTEROL Date Value Ref Range Status 07/31/2024 123 <130 mg/dL Final Passed - Visit with relevant provider in past 6 months or upcoming 90 days Recent Visits Date Type Provider Dept 08/07/24 Office Visit Remberto Pandey MD [facility] 06/14/24 Office Visit Remberto Pandey MD [facility] 04/04/24 Office Visit Remberto Pandey MD [facility] 02/14/24 Office Visit Eliezer Rhoades MD [facility] [place] Showing recent visits within past 182 days and meeting all other requirements Future Appointments No visits were found meeting these conditions. Showing future appointments within next 90 days and meeting all other requirements Passed - HgA1C result on record in past 6 months HGB-A1C Date Value Ref Range Status 07/31/2024 5.4 4.0 - 6.0 % Final documented in this encounter Plan of Treatment Upcoming Encounters Date Type Department Care Team (Late st Contact Info) Description 12/03/2024 11:40 AM CDT Lab [facility] [address] [facility] [address] [address] [place] Rm Lab/Ancillary 12/11/2024 2:30 PM CDT Office Visit [facility] [address] [place] [address] Remberto Pandey MD [address] [facility] [address] [place] [address] documented as of this encounter Visit Diagnoses Not on filedocumented in this encounter Additional Health Concerns Assessment Noted Time PHQ-9 Depression Total Score: 0 02/14/20 24 10:17 AM CDT documented as of this encounter Care Teams Electronics Technology Instructor Relationship Specialty Start Date End Date Remberto Pandey MD [address] [id number] PCP - General Family Medicine 07/13/22 John Aquino MD [address] [address] Consulting Physician Colon and Rectal Surgery 05/06/23 documented as of this encounter
--- OUTSIDE RECORDS SUMMARY | 2024-08-23 14:42 | XMS_ITS ---
Care Plan - [facility] Created on: August 23, 2024 GABRIEL RAYMOND : 1960 Sex: Female Author Organization [facility] Address [address] [place] [address] Phone Care Team Providers Care Product Line Manager Name Role Phone Unavailable Unavailable Unavailable
--- OUTSIDE RECORDS SUMMARY | 2024-08-23 14:42 | XMS_ITS | Clinical Summary ---
Author Organization [facility] Address [address] [place] [address] Phone Care Team Providers Care Bark Fitter Name Role Phone Unavailable Unavailable Unavailable Reason [...]
--- OUTSIDE RECORDS SUMMARY | 2024-08-23 14:42 | XMS_ITS ---
Author Organization [facility] Address [address] [place] [address] Phone Care Team Providers Care Rehab Rn Name Role Phone Unavailable Unavailable Unavailable Plan [...]
--- NOTE | 2024-08-23 15:12 | ED_ITS ---
HPI - URI/Sore Throat General Chief Complaint: Upper Respiratory Infection Stated Complaint: throat/ears/cough Time Seen by Provider: 08/23/24 15:14 Source: patient, RN notes reviewed and old records reviewed Mode of arrival: ambulatory Limitations: no limitations History of Present Illness HPI Narrative: 63 year old female who presents to [facility] care with complaints of sore throat, nasal congestion and cough for one week duration with left ear pain and drainage for the past 2 days. Patient reports that she was treated for eight ear infection in June. Patient reports history of ear problems. Patient states that she has been taking Mucinex for her symptoms and some Ibuprofen MD elicited complaint: cough, sore throat and other (ear pain left) Pertinent past history: tympanostony tubes and other (ear infections.) Onset (ago): day(s) (2 days ear pain left ear and drainage, cough sore throat and congestion one week) Consistency: progressively worsening Severity: moderate Pain scale (0-10): 8 Able to tolerate fluids by mouth: Yes Treatments prior to arrival: ibuprofen and other (Mucinex) Related Data Home Medications ?Medication ?Instructions ?Recorded ?Confirmed ?Last Taken ?Type atorvastatin 20 mg tablet 20 mg PO DAILY 05/10/19 12/19/22 Unknown History duloxetine 60 mg capsule,delayed 60 mg PO DAILY 05/10/19 12/19/22 Unknown Histo ry release omeprazole 20 mg tablet,delayed 20 mg PO BID 05/10/19 12/19/22 Unknown History release gabapentin 600 mg tablet 600 mg PO BID 08/03/21 12/19/22 Unknown History diclofenac sodium 50 mg 50 mg PO BID 12/14/22 12/19/22 Unknown History tablet,delayed release empagliflozin 10 mg tablet 10 mg PO DAILY 12/14/22 12/19/22 Unknown History (Jardiance) glipizide 10 mg tablet 10 mg PO DAILY 12/14/22 12/19/22 Unknown History hydrochlorothiazide 25 mg tablet 25 mg PO DAILY 12/14/22 12/19/22 Unknown History losartan 25 mg tablet 25 mg PO DAILY 12/14/22 12/19/22 Unknown History gabapentin 300 mg capsule mg 07/12/24 Unknown History meloxicam 7.5 mg tablet mg 07/12/24 Unknown History omeprazole 20 mg capsule,delayed mg 07/12/24 Unknown History release pioglitazone 30 mg tablet mg 07/12/24 Unknown History tirzepatide 2.5 mg/0.5 mL mg subcut 07/12/24 Unknown History subcutaneous pen injector (Mounjaro) triamcinolone acetonide 0.1 % applic topical 07/12/24 Unknown History topical cream Allergies Allergy/AdvReac Type Severity Reaction Status Date / Time No Known Allergies Allergy Verified 08/23/24 15:01 Review of Systems Review of Systems: CONSTITUTIONAL: Reports malaise, no chills, sweats, or fever. EYES: Denies visual changes, redness, or discharge. ENT: Reports rhinorrhea, congestion, no sinus pain, left otalgia and sore throat. CARDIOVASCULAR: Denies chest pain, palpitations, or edema. RESPIRATORY: Reports cough.? Denies dyspnea. GASTROINTESTINAL: Denies abdominal pain, nausea, vomiting, diarrhea SKIN: Denies rash or itching. MUSCULOSKELETAL: Denies myalgia. NEUROLOGIC: Denies headache. All systems reviewed & are unremarkable except as noted in HPI and below PMFSH Past Medical History Medical History Otitis media Arthritis Anxiety and depression Neuropathy Hyperlipidemia Hypertension Diabetes Surgical History Surgical History History of total left knee replacement (TKR) H/O elbow surgery bilateral ulnar nerve release Hx of LASIK History of placement of ear tubes History of carpal tunnel release bilateral History of shoulder surgery Bilateral History of total right knee replacement (TKR) Social History Social History Smoking status: Never smoker Alcohol intake: unknown Substance use: never Living arrangements: with family Gender identity (if verbalized by the patient): Female Comments At time of signature, agree with nursing past medical, surgical, social and family history. There is no relevant family history pertinent to the presenting complaint Exam Narrative: GENERAL: Well-appearing, well-nourished, and in no acute distress. HEAD: Normocephalic EYES: PERRLA, conjunctivae clear ENT: Nares clear, turbinates edematous and erythematous, clear discharge. Mucous membranes moist Left TM red with purulent drainage noted, Right TM pearly prieto with dull light reflex; no tragal tenderness. Oropharynx erythematous without lesions. Tonsils not enlarged and without exudate, no drooling, no hoarseness, no trismus, uvula midline.post nasal drainage noted NECK: Supple. No lymphadenopathy CHEST: Clear to auscultation, breath sounds equal. No wheezing, rhonchi, rales, or stridor. No respiratory distress, speaks in full sentences.cough noted SAO2 96% on room air HEART: Regular rate and rhythm. No murmur heard. SKIN: Warm, dry, no rash. NEURO: Alert and oriented x3. PSYCH: Normal mood and affect Course Course Emergency Course: Patient is aware of diagnosis, understands and agrees to treatment plan.? Anticipatory guidance given.? Patient agrees to follow-up as directed and is aware of reasons to seek care at the emergency department. Portions of this record may have been created with voice recognition software Level of Care: Express Care Visit Vital Signs Vital signs: Vital Signs Temperature 36.6 C 08/23/24 14:20 Pulse Rate 66 08/23/24 14:20 Respiratory Rate 20 08/23/24 14:20 Blood Pressure 127/74 08/23/24 14:20 Pulse Oximetry 96 08/23/24 14:20 Oxygen Delivery Room Air 08/23/24 14:20 Temperature 36.6 C 08/23/24 14:20 Pulse Rate 66 08/23/24 14:20 Respiratory Rate 20 08/23/24 14:20 Blood Pressure 127/74 08/23/24 14:20 Pulse Oximetry 96 08/23/24 14:20 Oxygen Delivery Room Air 08/23/24 14:20 Reviewed MDM - URI/Sore Throat MDM Narrative Medical decision making narrative: Differential diagnosis considered: Pope virus, strep pharyngitis, allergic rhinitis, upper respiratory tract infection, sinusitis, rhinosinusitis, nasopharyngitis. viral pharyngitis, otitis media, otitis externa, pneumonia, bronchitis, viral cough syndrome, viral syndrome, and influenza.? Exam findings show no acute concerns or changes; patient is non-toxic appearing and is in no distress.? Patient is appropriate for outpatient treatment and follow-up. Differential Diagnosis Differential diagnosis: Likely upper respiratory infection, otitis media, viral infection, pharyngitis and other (cough) Medical Records Attestation: I reviewed the patient's medical records. Lab Data Attestation: I reviewed the patient's lab results. Critical Care Time Critical Care Time Critical Care Time: No Discharge Plan Discharge Clinical Impression: Acute infection of left ear, Upper respiratory infection with cough and congestion Patient Disposition: Home, Self-Care Condition: Stable Instructions: Antibiotic Form, Upper Respiratory Infection (ED) Additional Instructions: Increase fluids especially juices and water [id number] cough and cold medicine of your choice for your symptoms Cough tablets as directed for cough--do not bite, chew or suck on--swallow whole Tylenol or ibuprofen for any fever pain Ear drops as prescribed heat to the face 20-30 minutes 4-6 times a day for pain Salt water gargles, throat lozenges or throat sprays as desired Antibiotic as directed--finished the medication If your symptoms persist, change or worsen significantly before you can contact your personal physician then please, without delay, go to the emergency department for further evaluation. Follow-up with PCP in 7-10 days or sooner if needed Patient Language: [place] Prescriptions: New amoxicillin-pot clavulanate 875-125 mg tablet 1 tablet PO Q12H Qty: 20 0RF ofloxacin 0.3 % drops 5 drp LEFT EAR BID 7 Days Qty: 10 0RF benzonatate 200 mg capsule 200 mg PO TID PRN (Reason: cough) Qty: 20 0RF No Action atorvastatin 20 mg Tablet 20 mg PO DAILY duloxetine 60 mg Capsule,Delayed Release(Dr/Ec) 60 mg PO DAILY omeprazole 20 mg Tablet,Delayed Release (Dr/Ec) 20 mg PO BID gabapentin 600 mg tablet 600 mg PO BID glipizide 10 mg tablet 10 mg PO DAILY losartan 25 mg tablet 25 mg PO DAILY hydrochlorothiazide 25 mg tablet 25 mg PO DAILY diclofenac sodium 50 mg tablet,delayed release (DR/EC) 50 mg PO BID Jardiance 10 mg tablet 10 mg PO DAILY triamcinolone acetonide 0.1 % cream TOPICAL meloxicam 7.5 mg tablet gabapentin 300 mg capsule omeprazole 20 mg capsule,delayed release(DR/EC) pioglitazone 30 mg tablet Mounjaro 2.5 mg/0.5 mL pen injector SUBCUT Follow-up/Referrals: Katherin,Remberto Pineda MD [Primary Care Provider] - Time of Disposition: 15:23 Quality [place] Coma Scale Eyes: Open Verbal: Oriented and Alert Motor: Follows Commands Leo Coma Total Score: 15
== END 2024-08-23 15:25 | disposition home or self-care (01) ==
PROVIDERS: Emergency Provider Registered Nurse; PCP Internal Medicine
DX: H66.92 Otitis media, unspecified, left ear (principal); J06.9 Acute upper respiratory infection, unspecified; R05.9 Cough, unspecified; I10 Essential (primary) hypertension; E11.40 Type 2 diabetes mellitus with diabetic neuropathy, unspecified; Z79.84 Long term (current) use of oral hypoglycemic drugs; E78.5 Hyperlipidemia, unspecified; M19.90 Unspecified osteoarthritis, unspecified site; Z96.653 Presence of artificial knee joint, bilateral
CPT/HCPCS: 99213; G0463